=== PATIENT | female | born 1990 | race Caucasian/White ===

== ENCOUNTER 2018-07-23 04:13 | Emergency (ER) | payer SELFPAY ==
[2018-07-23] VITALS (127 sets, daily range): BP systolic 88–123; BP diastolic 43–91; PULSE 50–143; RESP 10–30; TEMP 36.6; O2SAT 93–99
[2018-07-23] MEDS: Haloperidol 5 MG/ML VIAL IM (04:27)
[2018-07-23] MEDS: diphenhydrAMINE 50 MG/ML VIAL IM (04:27)
[2018-07-23] MEDS: LORazepam 2 MG/ML VIAL IM (04:27)
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
[2018-07-23 05:46] LABS: Abs Immature Grans 0.04 k/cumm (0.0-0.09); Absolute Basophil Count 0.03 k/cumm (0.0-0.2); Absolute Lymphocyte Count 1.38 k/cumm (1.2-3.4); Absolute Monocyte Count 1.02 k/cumm (0.11-0.7); Basophils % 0.2; Eosinophils % 0.3; HCT 36.2 % (36.0-46.0); HGB 12.3 g/dL (12.0-15.5); Immature Grans % 0.3; Lymphocytes % 8.9; Mean Corpuscular Hemoglobin 28.5 pg (27.0-33.0); Mean Platelet Volume 8.7 fL (8.0-11.0); Monocytes % 6.6; Neutrophils % 83.7; Platelet Count 326 x1000/uL (130-400); RBC 4.31 m/cumm (4.00-5.20); White Blood Cell Count 15.53 k/cumm (4.4-10.8)
[2018-07-23 05:52] LABS: Absolute Eosinophil Count 0.05 k/cumm (0.0-0.7)
[2018-07-23 05:53] LABS: Bilirubin Small (Negative); Blood Negative (Negative); Clarity Clear; Glucose Negative (Negative); Ketones Negative (Negative); Leukocyte Esterase Negative (Negative); Nitrite Negative (Negative); Specific Gravity >= 1.030 (1.005-1.025); Urobilinogen 0.2 EU/dL (Up TO 0.2); pH 5.5 (5-8)
[2018-07-23 05:59] LABS: ALT 54 U/L (12-78); AST 41 U/L (15-37); Albumin 3.8 g/dL (3.4-5.0); Alkaline Phosphatase 68 U/L (46-116); Anion Gap 15.9 mmol/L (3-11); BUN 27 mg/dL (7-18); Bilirubin, Total 0.7 mg/dL (0.2-1.0); CO2 25.1 mmol/L (21.0-32.0); CREATININE 1.14 mg/dL (0.55-1.02); Calcium 8.6 mg/dL (8.5-10.1); Chloride 97 mmol/L (98-107); Estimated GFR 57.17 (mL/min/1.73m2); Glucose 94 mg/dL (70-100); Potassium 3.7 mmol/L (3.5-5.1); Sodium 138 mmol/L (136-145); Total Protein 7.6 g/dL (6.4-8.2)
[2018-07-23 06:01] LABS: *AMPHETAMINES SCREEN URINE Negative (Negative); *BARBITURATES SCREEN URINE Negative (Negative); *BENZODIAZEPINES SCREEN URINE Negative (Negative); Cannabinoids THC POSITIVE (Negative); Cocaine Screen,Urine POSITIVE (Negative); METHADONE URINE SCREEN Negative (Negative); OPIATES URINE SCREEN POSITIVE (Negative)
[2018-07-23 06:02] LABS: Bacteria Rare HPF (Negative); Crystals Negative HPF (Negative); Epithelial Cells Rare HPF (Negative); Mucus Trace (Negative); RBC Negative (0-2); WBC 0-2 HPF (0-5)
[2018-07-23 06:03] LABS: C & S Indicated? Yes; Casts 3-5 Hyaline LPF (Negative)
[2018-07-23 06:11] LABS: ETHANOL BLOOD < 3.0 mg/dL (<3)
[2018-07-23 06:12] LABS: Tricyclic Antidepressants POSITIVE (Negative)
[2018-07-23 06:20] LABS: Salicylate 4.8 mg/dL (2.8-20.0)
[2018-07-23 06:21] LABS: Acetaminophen < 2 ug/mL (10-30)
[2018-07-23] MEDS: Normal Saline 1,000 ML 1000 ML IV ×2 (13:55→14:26)
--- NOTE | 2018-07-23 15:46 | NUR.NOTE ---
Nursing Note: sleeping -HOB elevated 40 degrees after eating.
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
--- NOTE | 2018-07-23 16:53 | NUR.NOTE ---
sleeping/VS stableNursing Note:
--- NOTE | 2018-07-23 17:36 | NUR.NOTE ---
Nursing Note: sleeping/color good
--- NOTE | 2018-07-23 17:37 | NUR.NOTE ---
States has no one to come and get her and no place to go--CM notified--will try calling who is listed as a assembly person on chart and call back.Nursing Note:
--- NOTE | 2018-07-23 18:35 | NUR.NOTE ---
Nursing Note: Disha Lucas CM arrives--pt refused to talk with her--states she does not want to leave the hospital. I want to stay until I'm detoxed
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
--- NOTE | 2018-07-23 20:15 | PDOC.ERCMPRO ---
Care Management Progress Note CM paged for assistance with disposition, clothing and transportation. Vivien was unwilling to provide pertinent information to support CM in attaining support or transport for Vivien. She was requesting detox facility; CM reviewed options with Cynthia of [facility] who attempted coordination. Tash declined referral reportedly due to Vivien testing positive for cocaine-although Vivien reported requesting detox for opiate addiction. Vivien struggled to effectively communicate; bluntly and sporadically speaking in short sentences. She was unwilling or unable to identify any natural supports, destinations or folks she could call upon discharge. Due to presentation on arrival; ED staff requested support in coordination of clothing for discharge. CM gathered socks, shoes, hat, mittens, pants, sweatshirt and jacket for Vivien-which was provided. She entered the bathroom and dressed. She asked for a ride to [address] [place] [address] in [place], [place]. CM paged the [facility] tectonophysicist paging service and secured a ride for Vivien to this address. No Medicaid is shown on file; CM will request [facility] Access run Vivien's information to determine insurance coverage tomorrow morning; if she is not currently covered by Medicaid, CM will prior auth trip to be paid by [facility] and fax authorization to [facility].
--- NOTE | 2018-07-23 20:23 | CMPROGNOTE_ITS ---
Care Management Progress Note CM paged for assistance with disposition, clothing and transportation. Vivien was unwilling to provide pertinent information to support CM in attaining support or transport for Vivien. She was requesting detox facility; CM reviewed options with Cynthia of [facility] who attempted coordination. Tash declined referral reportedly due to Vivien testing positive for cocaine-although Vivien reported requesting detox for opiate addiction. Vivien struggled to effectively communicate; bluntly and sporadically speaking in short sentences. She was unwilling or unable to identify any natural supports, destinations or folks she could call upon discharge. Due to presentation on arrival; ED staff requested support in coordination of clothing for discharge. CM gathered socks, shoes, hat, mittens, pants, sweatshirt and jacket for Vivien-which was provided. She entered the bathroom and dressed. She asked for a ride to [address] [place] [address] in [place], [place]. CM paged the [facility] compressor station operator paging service and secured a ride for Vivien to this address. No Medicaid is shown on file; CM will request [facility] Access run Vivien's information to determine insurance coverage tomorrow morning; if she is not currently covered by Medicaid, CM will prior auth trip to be paid by [facility] and fax authorization to [facility].
== END 2018-07-23 20:16 | disposition home or self-care (01) ==
PROVIDERS: Emergency Medicine; Emergency Provider Student in an Organized Health Care Education/Training Program; PCP Family Medicine
DX: R45.1 Restlessness and agitation (principal); F19.20 Other psychoactive substance dependence, uncomplicated; F10.129 Alcohol abuse with intoxication, unspecified; E87.2 Acidosis; Z86.19 Personal history of other infectious and parasitic diseases; Z78.1 Physical restraint status
CPT/HCPCS: 36415; 80053; 80307; 81025; 96360; 96372; 99285; 80320; 80329; 81003; 81015; 85025; 87086; 99284; J1200; J1630; J2060

== ENCOUNTER 2018-10-21 10:06 | Emergency (ER) | payer SELFPAY ==
[2018-10-21] VITALS (137 sets, daily range): BP systolic 84–150; BP diastolic 31–124; PULSE 48–127; RESP 9–51; TEMP 36.6–37.6; O2SAT 66–100
--- NOTE | 2018-10-21 10:21 | W.ED.GENAD ---
Discharge Plan Discharge Details Chief Complaint: OD/Poison Primary Care Provider: Leonides Cunningham ED Provider: Argenis Cox Home Meds and New Rx's Prescriptions: No Action Narcan 4 MG spray,non-aerosol 4 mg NS DIRECTED Qty: 2 RF: 0 Discharge Data Discharge Date/Time-TO BE ENTERED AT DEPARTURE: 10/21/18 23:32 Medical Decision Making Vivien Mohan is a 28-year-old woman with history of asthma, bipolar, recreational drug use presenting to the emergency department with altered mental status and agitation. On exam patient is agitated and uncooperative, does not answer any questions appropriately, screams repeatedly do not touch me, repeatedly throwing blankets off her while screaming that she is cold. Tachycardic, vital signs otherwise okay. Concern for altered mental status secondary to drug use versus metabolic/lyte derangement versus acute intracranial process versus other. Plan for EKG, CT head, chest x-ray, screening labs, UA, IV placement, telemetry. Patient is unable to cooperate/participate in her care secondary to altered mental status and agitation. Plan for sedation with IM Versed. Patient received IV Versed with good sedation effect, maintaining airway without issue. Sleeping but easily arousable. Patient was temporarily placed in restraints at time of Versed administration, these were removed within 10 minutes. Patient awoke while attempting IV placement, again became very agitated and uncooperative. Patient was somewhat more lucid however and was able to tell me that she was currently in the emergency department at [facility], told me her name and address, and the correct date. Despite being oriented, patient continued to be altered and not understanding of her plan of care, unable to cooperate, again screaming that she was cold and throwing blankets off of her simultaneously. IM Versed, EKG okay without long QT, IM Haldol given as well. Sedation achieved with good effect. Patient to CT scan for CT head, IV placed and labs drawn. CT head per radiology, no acute process, cxr per radiology: no acute process. Labs show leukocytosis 29, anion gap 14, lactate 0.8. Patient remains afebrile. Unclear etiology of leukocytosis, stress reaction versus infection. Glucose 60 on fingerstick. IV dextrose given, repeat fingerstick shows glucose in 200s. We will continue to monitor and reassess. Patient sleeping, continues to arouse easily to verbal stimuli, rapidly falls back to sleep. Patient more awake at this point. Asking for food. Repeat fingerstick in the 50s. Patient drinking alyx lashon and eating fish, carrots, mashed potatoes without issue. She denies having any pain. No fever. She reports that she used heroin 2 days ago, and used crack this morning. She reports that she has been using crack frequently and has not been eating well. She denies having any pain. Repeat fingerstick 90s after meal. At this point patient with recurring hypoglycemia, likely agitation secondary to crack cocaine use, now somnolent after Versed and Haldol. Plan for admission given metabolic/lyte derangements, continued somnolence. No ICU beds available at this facility, patient not appropriate for floor bed at this time. No ICU beds available at [place], patient not appropriate for [facility] ICU. [facility] called at 7 PM. Awaiting callback. Several calls to [facility], have not been able to speak to physician re: transfer. [facility] called at [phone]. Spoke with [facility], they state they have no beds available that are appropriate for this patient. Discussed patient with Dr. Flores of [facility], patient accepted for transfer to the ICU at [facility] at 2145, no further treatment recommendations at this time, leukocytosis likely stress related given patient remains afebrile without complaint, normal lactate, no downtrending blood pressure. Pt status unchanged, somnolent, arouses easily to voice, no complaints. Patient signed out to Dr. Pena at time of shift change pending transfer. Medical Records Medical records reviewed: Yes I reviewed the patient's medical records. Lab Data Lab results reviewed: Yes I reviewed the patient's lab results. 10/21/18 13:10 Blood Blood Culture - Preliminary NO GROWTH 48 HOURS 10/21/18 12:50 Blood Blood Culture - Preliminary NO GROWTH 48 HOURS Laboratory Tests Range/Units 10/21/18 10/21/18 10/21/18 11:55 11:55 13:10 WBC (4.4-10.8) k/cumm 29.93 H* RBC (4.00-5.20) m/cumm 4.43 Hgb (12.0-15.5) g/dL 12.3 Hct (36.0-46.0) % 36.0 MCV (80-95) fL 81.3 MCH (27.0-33.0) pg 27.8 MCHC (32.0-36.0) g/dL 34.2 RDW (11.7-14.6) % 14.9 H Plt Count (130-400) x1000/uL 384 MPV (8.0-11.0) fL 8.3 Immature Gran % 0.3 Neutrophils % 91.7 Lymphocytes % 5.1 Monocytes % 2.7 Eosinophils % 0.1 Basophils % 0.1 Absolute Neutrophils (1.2-6.7) k/cumm 27.45 H Absolute Lymphocytes (1.2-3.4) k/cumm 1.53 Absolute Monocytes (0.11-0.7) k/cumm 0.81 H Absolute Eosinophils (0.0-0.7) k/cumm 0.03 Absolute Basophils (0.0-0.2) k/cumm 0.03 Sodium (136-145) mmol/L 139 Potassium (3.5-5.1) mmol/L 3.6 Chloride (98-107) mmol/L 99 Carbon Dioxide (21.0-32.0) mmol/L 25.4 Anion Gap (3-11) mmol/L 14.6 H BUN (7-18) mg/dL 25 H Creatinine (0.55-1.02) mg/dL 0.98 Estimated GFR/1.73 m2 (mL/min/1.73m2) >= 60.00 Glucose (70-100) mg/dL 47 L Lactate (0.6-1.4) mmol/l 0.8 Calcium (8.5-10.1) mg/dL 8.9 Magnesium (1.8-2.4) mg/dL Total Bilirubin (0.2-1.0) mg/dL 0.6 AST (15-37) U/L 52 H ALT (12-78) U/L 59 Alkaline Phosphatase (46-116) U/L 79 Total Protein (6.4-8.2) g/dL 7.8 Albumin (3.4-5.0) g/dL 4.1 Beta HCG, Quant (1-3) mIU/mL < 1 L Urine Color (Yellow) Urine Clarity Urine pH (5-8) Ur Specific [place] (1.005-1.025) Urine Protein (Negative) mg/dL Urine Ketones (Negative) mg/dL Urine Blood (Negative) Urine Nitrite (Negative) Urine Bilirubin (Negative) Urine Urobilinogen (Up TO 0.2) EU/dL Ur Leukocyte Esterase (Negative) Urine RBC (0-2) Urine WBC (0-5) HPF Ur Epithelial Cells (Negative) HPF Urine Crystals (Negative) HPF Urine Bacteria (Negative) HPF Urine Casts (Negative) LPF Urine Mucus (Negative) Urine Other (Negative) Ur Culture Indicated? Urine Glucose (Negative) mg/dL Urine Opiates Screen (Negative) Urine Methadone Screen (Negative) Ur Barbiturates Screen (Negative) Ur Tricyclics Screen (Negative) Ur Amphetamines Screen (Negative) U Benzodiazepines Scrn (Negative) Urine Cocaine Screen (Negative) Ur THC Screen (Negative) Range/Units 10/21/18 10/21/18 10/21/18 16:33 16:33 16:33 WBC (4.4-10.8) k/cumm RBC (4.00-5.20) m/cumm Hgb (12.0-15.5) g/dL Hct (36.0-46.0) % MCV (80-95) fL MCH (27.0-33.0) pg MCHC (32.0-36.0) g/dL RDW (11.7-14.6) % Plt Count (130-400) x1000/uL MPV (8.0-11.0) fL Immature Gran % Neutrophils % Lymphocytes % Monocytes % Eosinophils % Basophils % Absolute Neutrophils (1.2-6.7) k/cumm Absolute Lymphocytes (1.2-3.4) k/cumm Absolute Monocytes (0.11-0.7) k/cumm Absolute Eosinophils (0.0-0.7) k/cumm Absolute Basophils (0.0-0.2) k/cumm Sodium (136-145) mmol/L 139 Potassium (3.5-5.1) mmol/L 3.8 Chloride (98-107) mmol/L 104 Carbon Dioxide (21.0-32.0) mmol/L 20.9 L Anion Gap (3-11) mmol/L 14.1 H BUN (7-18) mg/dL 24 H Creatinine (0.55-1.02) mg/dL 0.96 Estimated GFR/1.73 m2 (mL/min/1.73m2) >= 60.00 Glucose (70-100) mg/dL 71 Lactate (0.6-1.4) mmol/l 0.6 Calcium (8.5-10.1) mg/dL 7.7 L Magnesium (1.8-2.4) mg/dL 2.1 Total Bilirubin (0.2-1.0) mg/dL AST (15-37) U/L ALT (12-78) U/L Alkaline Phosphatase (46-116) U/L Total Protein (6.4-8.2) g/dL Albumin (3.4-5.0) g/dL Beta HCG, Quant (1-3) mIU/mL Urine Color (Yellow) Urine Clarity Urine pH (5-8) Ur Specific [place] (1.005-1.025) Urine Protein (Negative) mg/dL Urine Ketones (Negative) mg/dL Urine Blood (Negative) Urine Nitrite (Negative) Urine Bilirubin (Negative) Urine Urobilinogen (Up TO 0.2) EU/dL Ur Leukocyte Esterase (Negative) Urine RBC (0-2) Urine WBC (0-5) HPF Ur Epithelial Cells (Negative) HPF Urine Crystals (Negative) HPF Urine Bacteria (Negative) HPF Urine Casts (Negative) LPF Urine Mucus (Negative) Urine Other (Negative) Ur Culture Indicated? Urine Glucose (Negative) mg/dL Urine Opiates Screen (Negative) Urine Methadone Screen (Negative) Ur Barbiturates Screen (Negative) Ur Tricyclics Screen (Negative) Ur Amphetamines Screen (Negative) U Benzodiazepines Scrn (Negative) Urine Cocaine Screen (Negative) Ur THC Screen (Negative) Range/Units 10/21/18 10/21/18 17:20 17:20 WBC (4.4-10.8) k/cumm RBC (4.00-5.20) m/cumm Hgb (12.0-15.5) g/dL Hct (36.0-46.0) % MCV (80-95) fL MCH (27.0-33.0) pg MCHC (32.0-36.0) g/dL RDW (11.7-14.6) % Plt Count (130-400) x1000/uL MPV (8.0-11.0) fL Immature Gran % Neutrophils % Lymphocytes % Monocytes % Eosinophils % Basophils % Absolute Neutrophils (1.2-6.7) k/cumm Absolute Lymphocytes (1.2-3.4) k/cumm Absolute Monocytes (0.11-0.7) k/cumm Absolute Eosinophils (0.0-0.7) k/cumm Absolute Basophils (0.0-0.2) k/cumm Sodium (136-145) mmol/L Potassium (3.5-5.1) mmol/L Chloride (98-107) mmol/L Carbon Dioxide (21.0-32.0) mmol/L Anion Gap (3-11) mmol/L BUN (7-18) mg/dL Creatinine (0.55-1.02) mg/dL Estimated GFR/1.73 m2 (mL/min/1.73m2) Glucose (70-100) mg/dL Lactate (0.6-1.4) mmol/l Calcium (8.5-10.1) mg/dL Magnesium (1.8-2.4) mg/dL Total Bilirubin (0.2-1.0) mg/dL AST (15-37) U/L ALT (12-78) U/L Alkaline Phosphatase (46-116) U/L Total Protein (6.4-8.2) g/dL Albumin (3.4-5.0) g/dL Beta HCG, Quant (1-3) mIU/mL Urine Color (Yellow) Yellow Urine Clarity Clear Urine pH (5-8) 5.5 Ur Specific [place] (1.005-1.025) >= 1.030 H Urine Protein (Negative) mg/dL 30 H Urine Ketones (Negative) mg/dL 40 H Urine Blood (Negative) Negative Urine Nitrite (Negative) Negative Urine Bilirubin (Negative) Negative Urine Urobilinogen (Up TO 0.2) EU/dL 0.2 Ur Leukocyte Esterase (Negative) Negative Urine RBC (0-2) Negative Urine WBC (0-5) HPF 0-2 Ur Epithelial Cells (Negative) HPF Rare Urine Crystals (Negative) HPF Negative Urine Bacteria (Negative) HPF Rare Urine Casts (Negative) LPF Negative Urine Mucus (Negative) Trace Urine Other (Negative) Negative Ur Culture Indicated? No Urine Glucose (Negative) mg/dL Negative Urine Opiates Screen (Negative) Positive Urine Methadone Screen (Negative) Negative Ur Barbiturates Screen (Negative) Negative Ur Tricyclics Screen (Negative) Negative Ur Amphetamines Screen (Negative) Negative U Benzodiazepines Scrn (Negative) Positive Urine Cocaine Screen (Negative) Positive Ur THC Screen (Negative) Positive ECG Data Attestation: I personally reviewed and interpreted this ECG (s) as follows: Interpretation: Normal sinus rhythm at 75, normal axis, no acute ischemic changes, nondiagnostic EKG HPI General Mode of arrival: EMS. Date/Time Provider Initiated Documentation: 10/21/18 10:55. Limitations to Documentation: altered mental status. Information obtained by: EMS, RN notes reviewed and old records reviewed. HPI Narrative: Vivien Mohan is a 28-year-old woman with history of asthma, bipolar, drug abuse presenting to the emergency department with altered mental status. Per EMS, patient was found rolling around in snow outside in freezing temperatures, agitated, uncooperative. Per EMS, patient was found to have what looked like crack cocaine in her possession. Patient is currently agitated, screaming, uncooperative, does not answer any questions appropriately. Unable to obtain review of systems secondary to altered mental status. Related Data Home Medications Medication Instructions Recorded Confirmed Narcan 4 mg NS DIRECTED #2 spray 03/07/18 10/21/18 Previous Rx's Medication Instructions Recorded Narcan 4 mg NS DIRECTED #2 spray 03/07/18 Allergies Allergy/AdvReac Type Severity Reaction Status Date / Time amoxicillin trihydrate Allergy Severe Anaphylaxsi Unverified 10/21/18 16:27 [From Amoxil] s aloe vera Allergy Intermediate Hives Unverified 10/21/18 16:27 venom-honey bee Allergy Intermediate Unverified 10/21/18 16:27 [bee venom (honey bee)] erythromycin base Allergy Unknown Unverified 10/21/18 16:27 [Erythromycin Base] Penicillins Allergy Unknown Unverified 10/21/18 16:27 COCONUT Allergy Unknown Uncoded 10/21/18 16:27 General MARISELA: 1 Review of Systems Review of Systems Unobtainable due to mental status [facility] Social History Smoking/Tobacco Use Status: Current every day Exam Narrative Exam Narrative: Constitutional: agitated, shouting, not responding to questions asked, alert HENT: head atraumatic, normocephalic normal inspection, mucous membranes moist Eyes: conjunctiva normal, sclera normal, pupils 3mm b/l, EOM grossly Neck: no stridor, normal ROM, trachea midline Chest: normal inspection Resp: normal work of breathing, LCTAB Cardio: normal rate, normal rhythm, no murmur appreciated GI: abdomen soft, non-tender, non-distended Back: normal inspection, no rash Skin: warm, dry, normal color, no rash Neuro: alert, altered, grossly non-focal, moving all extremities equally, normal tone Ext: no edema Psych: agitated behavior, no hallucinations Critical Care Time Attestation: I have spent 90 minutes of critical care time with this patient including frequent re-evaluations, discussion with consultants.
[2018-10-21] MEDS: Midazolam 5 MG/5 ML VIAL ×3 (10:51→16:53)
[2018-10-21] MEDS: Haloperidol 5 MG/ML VIAL (10:55)
--- NOTE | 2018-10-21 11:13 | DI.COMBO_ITS ---
SYMPTOM/DIAGNOSIS: ALTERED MENTAL STATUS AP SEMI ERECT CHEST: Comparison is made with 12/30/11. The heart size is normal. The lungs are clear. The lungs are suboptimally inflated but appear clear. No infiltrate, effusion or pneumothorax is seen. IMPRESSION: Negative chest xray. NONCONTRAST HEAD CT: Comparison is made with 03/01/18. No intracranial hemorrhage or skull fracture is seen. The ventricles are normal in size. The sinuses and mastoid air cells appear clear. IMPRESSION: Negative head CT.
--- NOTE | 2018-10-21 11:53 | DI.VRAD_ITS ---
EXAM: CT Head Without Contrast EXAM DATE/TIME: 10/21/2018 10:20 AM CLINICAL HISTORY: 28 years old, female; Signs and symptoms; Altered mental status/memory loss; Other: AMS; Patient HX: Patient unconscious unable to get medical HX. Best images obtained due to patient condition. TECHNIQUE: Axial computed tomography images of the head/brain without contrast. All CT scans at this facility use at least one of these dose optimization techniques: automated exposure control; mA and/or kV adjustment per patient size (includes targeted exams where dose is matched to clinical indication); or iterative reconstruction. Coronal and sagittal reformatted images were created and reviewed. COMPARISON: CT HEAD AND CSPINE W/O CONTRAST 03/01/2018 11:03 PM FINDINGS: Brain: Normal. No hemorrhage. No significant white matter disease. No edema. Ventricles: Normal. No ventriculomegaly. Bones/joints: Unremarkable. No acute fracture. Sinuses: Opacities in the maxillary sinuses may represent mild sinusitis Mastoid air cells: Visualized mastoid air cells are unremarkable. No mastoid effusion. Soft tissues: Unremarkable. Dental: Periapical lucencies in the maxilla may represent periapical abscess. IMPRESSION: No acute intracranial hemorrhage Dictated and Authenticated by: Guevara Smith MD. Ordering:KEITH More MD
[2018-10-21] MEDS: Normal Saline Flush 10 ML SYR IVP (11:55)
--- NOTE | 2018-10-21 12:03 | DI.VRAD_ITS ---
Addendum created by Guevara Smith MD on 10/21/2018 12:05:42 PM EST THIS REPORT CONTAINS FINDINGS THAT MAY BE CRITICAL TO PATIENT CARE. The findings were verbally communicated via telephone conference with DANIEL ESTRELLA at 12:05 PM EST on 10/21/2018. The findings were acknowledged and understood. She states that clinically the patient has no reason for pneumothorax. She will get a followup study Initial report created on 10/21/2018 12:03:23 PM EST EXAM: XR Chest, 1 View EXAM DATE/TIME: 10/21/2018 11:49 AM CLINICAL HISTORY: 28 years old, female; Signs and symptoms; Other: AMS TECHNIQUE: XR of the chest, 1 view. COMPARISON: CR RIGHT RIBS PA CXR-3 VIEWS 04/28/2013 1:21 AM FINDINGS: Lungs: Apices of both lung amaya are very lucent. However no definite pleural surface identified. Small pneumothoraces cannot be ruled out. Pleural space: See Lungs Finding. Heart/Mediastinum: Unremarkable. No cardiomegaly. Bones/joints: Unremarkable. IMPRESSION: Apices of both lung amaya are very lucent. However no definite pleural surface identified. Small pneumothoraces cannot be ruled out. Dictated and Authenticated by: Guevara Smith MD. Ordering:KEITH More MD
[2018-10-21 12:04] LABS: Absolute Basophil Count 0.03 k/cumm (0.0-0.2); Absolute Lymphocyte Count 1.53 k/cumm (1.2-3.4); Basophils % 0.1; Eosinophils % 0.1; HGB 12.3 g/dL (12.0-15.5); Immature Grans % 0.3; Lymphocytes % 5.1; Mean Corp. HGB Concentration 34.2 g/dL (32.0-36.0); Mean Corpuscular Hemoglobin 27.8 pg (27.0-33.0); Mean Corpuscular Volume 81.3 fL (80-95); Mean Platelet Volume 8.3 fL (8.0-11.0); Monocytes % 2.7; Neutrophils % 91.7; Platelet Count 384 x1000/uL (130-400); RBC 4.43 m/cumm (4.00-5.20); RBC Distribution Width 14.9 % (11.7-14.6)
[2018-10-21 12:18] LABS: ALT 59 U/L (12-78); AST 52 U/L (15-37); Albumin 4.1 g/dL (3.4-5.0); Alkaline Phosphatase 79 U/L (46-116); Anion Gap 14.6 mmol/L (3-11); BUN 25 mg/dL (7-18); Bilirubin, Total 0.6 mg/dL (0.2-1.0); CO2 25.4 mmol/L (21.0-32.0); CREATININE 0.98 mg/dL (0.55-1.02); Calcium 8.9 mg/dL (8.5-10.1); Chloride 99 mmol/L (98-107); Glucose 47 mg/dL (70-100); Potassium 3.6 mmol/L (3.5-5.1); Sodium 139 mmol/L (136-145); Total Protein 7.8 g/dL (6.4-8.2)
[2018-10-21 12:24] LABS: Absolute Eosinophil Count 0.03 k/cumm (0.0-0.7); Absolute Monocyte Count 0.81 k/cumm (0.11-0.7); Absolute Neutrophil Count 27.45 k/cumm (1.2-6.7); White Blood Cell Count 29.93 k/cumm (4.4-10.8)
[2018-10-21 12:43] LABS: HCG Quant, Pregnancy < 1 mIU/mL (1-3)
[2018-10-21] MEDS: Normal Saline 1,000 ML 1000 ML IV ×2 (13:10→14:00)
[2018-10-21 13:16] LABS: Lactate-non-spesis 0.8 mmol/l (0.6-1.4)
[2018-10-21] MEDS: Lactated Ringers 1,000 ML 1000 ML IV (15:47)
[2018-10-21 16:45] LABS: Lactate-non-spesis 0.6 mmol/l (0.6-1.4)
[2018-10-21] MEDS: Midazolam 2 MG/2 ML VIAL (16:52)
[2018-10-21 16:55] LABS: Anion Gap 14.1 mmol/L (3-11); BUN 24 mg/dL (7-18); CO2 20.9 mmol/L (21.0-32.0); CREATININE 0.96 mg/dL (0.55-1.02); Calcium 7.7 mg/dL (8.5-10.1); Chloride 104 mmol/L (98-107); Glucose 71 mg/dL (70-100); Potassium 3.8 mmol/L (3.5-5.1); Sodium 139 mmol/L (136-145)
[2018-10-21 17:34] LABS: Bilirubin Negative (Negative); Blood Negative (Negative); Clarity Clear; Glucose Negative (Negative); Ketones 40 mg/dL (Negative); Leukocyte Esterase Negative (Negative); Nitrite Negative (Negative); Specific Gravity >= 1.030 (1.005-1.025); Urobilinogen 0.2 EU/dL (Up TO 0.2); pH 5.5 (5-8)
--- NOTE | 2018-10-21 17:44 | ED.GENADUL_ITS ---
Discharge Plan Discharge Details Chief Complaint: OD/Poison Primary Care Provider: Leonides Cunningham ED Provider: Argenis Cox Home Meds and New Rx's Prescriptions: No Action Narcan 4 MG spray,non-aerosol 4 mg NS DIRECTED Qty: 2 RF: 0 Discharge Data Discharge Date/Time-TO BE ENTERED AT DEPARTURE: 10/21/18 23:32 Medical Decision Making Vivien Mohan is a 28-year-old woman with history of asthma, bipolar, recreational drug use presenting to the emergency department with altered mental status and agitation. On exam patient is agitated and uncooperative, does not answer any questions appropriately, screams repeatedly do not touch me, repeatedly throwing blankets off her while screaming that she is cold. Tachycardic, vital signs otherwise okay. Concern for altered mental status secondary to drug use versus metabolic/lyte derangement versus acute intracranial process versus other. Plan for EKG, CT head, chest x-ray, screening labs, UA, IV placement, telemetry. Patient is unable to coop erate/participate in her care secondary to altered mental status and agitation. Plan for sedation with IM Versed. Patient received IV Versed with good sedation effect, maintaining airway without issue. Sleeping but easily arousable. Patient was temporarily placed in restraints at time of Versed administration, these were removed within 10 minutes. Patient awoke while attempting IV placement, again became very agitated and uncooperative. Patient was somewhat more lucid however and was able to tell me that she was currently in the emergency department at [facility], told me her name and address, and the correct date. Despite being oriented, patient continued to be altered and not understanding of her plan of care, unable to cooperate, again screaming that she was cold and throwing blankets off of her simultaneously. IM Versed, EKG okay without long QT, IM Haldol given as well. Sedation achieved with good effect. Patient to CT scan for CT head, IV placed and labs drawn. CT head per radiology, no acute process, cxr per radiology: no acute process. Labs show leukocytosis 29, anion gap 14, lactate 0.8. Patient remains afebrile. Unclear etiology of leukocytosis, stress reaction versus infection. Glucose 60 on fingerstick. IV dextrose given, repeat fingerstick shows glucose in 200s. We will continue to monitor and reassess. Patient sleeping, continues to arouse easily to verbal stimuli, rapidly falls back to sleep. Patient more awake at this point. Asking for food. Repeat fingerstick in the 50s. Patient drinking alyx lashon and eating fish, carrots, mashed potatoes without issue. She denies having any pain. No fever. She reports that she used heroin 2 days ago, and used crack this morning. She reports that she has been using crack frequently and has not been eating well. She denies having any pain. Repeat fingerstick 90s after meal. At this point patient with recurring hypoglycemia, likely agitation secondary to crack cocaine use, now somnolent after Versed and Haldol. Plan for admission given metabolic/lyte derangements, continued somnolence. No ICU beds available at this facility, patient not appropriate for floor bed at this time. No ICU beds available at [place], patient not appropriate for [facility] ICU. [facility] called at 7 PM. Awaiting callback. Several calls to [facility], have not been able to speak to physician re: transfer. [facility] called at [phone]. Spoke with [facility], they state they have no beds available that are appropriate for this patient. Discussed patient with Dr. Flores of [facility], patient accepted for transfer to the ICU at [facility] at 2145, no further treatment recommendations at this time, leukocytosis likely stress related given patient remains afebrile without complaint, normal lactate, no downtrending blood pressure. Pt status unchanged, somnolent, arouses easily to voice, no complaints. Patient signed out to Dr. Pena at time of shift change pending transfer. Medical Records Medical records reviewed: Yes I reviewed the patient's medical records. Lab Data Lab results reviewed: Yes I reviewed the patient's lab results. 10/21/18 13:10 Blood Blood Culture - Preliminary NO GROWTH 48 HOURS 10/21/18 12:50 Blood Blood Culture - Preliminary NO GROWTH 48 HOURS Laboratory Tests Range/Units 10/21/18 10/21/18 10/21/18 11:55 11:55 13:10 WBC (4.4-10.8) k/cumm 29.93 H* RBC (4.00-5.20) m/cumm 4.43 Hgb (12.0-15.5) g/dL 12.3 Hct (36.0-46.0) % 36.0 MCV (80-95) fL 81.3 MCH (27.0-33.0) pg 27.8 MCHC (32.0-36.0) g/dL 34.2 RDW (11.7-14.6) % 14.9 H Plt Count (130-400) x1000/uL 384 MPV (8.0-11.0) fL 8.3 Immature Gran % 0.3 Neutrophils % 91.7 Lymphocytes % 5.1 Monocytes % 2.7 Eosinophils % 0.1 Basophils % 0.1 Absolute Neutrophils (1.2-6.7) k/cumm 27.45 H Absolute Lymphocytes (1.2-3.4) k/cumm 1.53 Absolute Monocytes (0.11-0.7) k/cumm 0.81 H Absolute Eosinophils (0.0-0.7) k/cumm 0.03 Absolute Basophils (0.0-0.2) k/cumm 0.03 Sodium (136-145) mmol/L 139 Potassium (3.5-5.1) mmol/L 3.6 Chloride (98-107) mmol/L 99 Carbon Dioxide (21.0-32.0) mmol/L 25.4 Anion Gap (3-11) mmol/L 14.6 H BUN (7-18) mg/dL 25 H Creatinine (0.55-1.02) mg/dL 0.98 Estimated GFR/1.73 m2 (mL/min/1.73m2) >= 60.00 Glucose (70-100) mg/dL 47 L Lactate (0.6-1.4) mmol/l 0.8 Calcium (8.5-10.1) mg/dL 8.9 Magnesium (1.8-2.4) mg/dL Total Bilirubin (0.2-1.0) mg/dL 0.6 AST (15-37) U/L 52 H ALT (12-78) U/L 59 Alkaline Phosphatase (46-116) U/L 79 Total Protein (6.4-8.2) g/dL 7.8 Albumin (3.4-5.0) g/dL 4.1 Beta HCG, Quant (1-3) mIU/mL < 1 L Urine Color (Yellow) Urine Clarity Urine pH (5-8) Ur Specific [place] (1.005-1.025) Urine Protein (Negative) mg/dL Urine Ketones (Negative) mg/dL Urine Blood (Negative) Urine Nitrite (Negative) Urine Bilirubin (Negative) Urine Urobilinogen (Up TO 0.2) EU/dL Ur Leukocyte Esterase (Negative) Urine RBC (0-2) Urine WBC (0-5) HPF Ur Epithelial Cells (Negative) HPF Urine Crystals (Negative) HPF Urine Bacteria (Negative) HPF Urine Casts (Negative) LPF Urine Mucus (Negative) Urine Other (Negative) Ur Culture Indicated? Urine Glucose (Negative) mg/dL Urine Opiates Screen (Negative) Urine Methadone Screen (Negative) Ur Barbiturates Screen (Negative) Ur Tricyclics Screen (Negative) Ur Amphetamines Screen (Negative) U Benzodiazepines Scrn (Negative) Urine Cocaine Screen (Negative) Ur THC Screen (Negative) Range/Units 10/21/18 10/21/18 10/21/18 16:33 16:33 16:33 WBC (4.4-10.8) k/cumm RBC (4.00-5.20) m/cumm Hgb (12.0-15.5) g/dL Hct (36.0-46.0) % MCV (80-95) fL MCH (27.0-33.0) pg MCHC (32.0-36.0) g/dL RDW (11.7-14.6) % Plt Count (130-400) x1000/uL MPV (8.0-11.0) fL Immature Gran % Neutrophils % Lymphocytes % Monocytes % Eosinophils % Basophils % Absolute Neutrophils (1.2-6.7) k/cumm Absolute Lymphocytes (1.2-3.4) k/cumm Absolute Monocytes (0.11-0.7) k/cumm Absolute Eosinophils (0.0-0.7) k/cumm Absolute Basophils (0.0-0.2) k/cumm Sodium (136-145) mmol/L 139 Potassium (3.5-5.1) mmol/L 3.8 Chloride (98-107) mmol/L 104 Carbon Dioxide (21.0-32.0) mmol/L 20.9 L Anion Gap (3-11) mmol/L 14.1 H BUN (7-18) mg/dL 24 H Creatinine (0.55-1.02) mg/dL 0.96 Estimated GFR/1.73 m2 (mL/min/1.73m2) >= 60.00 Glucose (70-100) mg/dL 71 Lactate (0.6-1.4) mmol/l 0.6 Calcium (8.5-10.1) mg/dL 7.7 L Magnesium (1.8-2.4) mg/dL 2.1 Total Bilirubin (0.2-1.0) mg/dL AST (15-37) U/L ALT (12-78) U/L Alkaline Phosphatase (46-116) U/L Total Protein (6.4-8.2) g/dL Albumin (3.4-5.0) g/dL Beta HCG, Quant (1-3) mIU/mL Urine Color (Yellow) Urine Clarity Urine pH (5-8) Ur Specific [place] (1.005-1.025) Urine Protein (Negative) mg/dL Urine Ketones (Negative) mg/dL Urine Blood (Negative) Urine Nitrite (Negative) Urine Bilirubin (Negative) Urine Urobilinogen (Up TO 0.2) EU/dL Ur Leukocyte Esterase (Negative) Urine RBC (0-2) Urine WBC (0-5) HPF Ur Epithelial Cells (Negative) HPF Urine Crystals (Negative) HPF Urine Bacteria (Negative) HPF Urine Casts (Negative) LPF Urine Mucus (Negative) Urine Other (Negative) Ur Culture Indicated? Urine Glucose (Negative) mg/dL Urine Opiates Screen (Negative) Urine Methadone Screen (Negative) Ur Barbiturates Screen (Negative) Ur Tricyclics Screen (Negative) Ur Amphetamines Screen (Negative) U Benzodiazepines Scrn (Negative) Urine Cocaine Screen (Negative) Ur THC Screen (Negative) Range/Units 10/21/18 10/21/18 17:20 17:20 WBC (4.4-10.8) k/cumm RBC (4.00-5.20) m/cumm Hgb (12.0-15.5) g/dL Hct (36.0-46.0) % MCV (80-95) fL MCH (27.0-33.0) pg MCHC (32.0-36.0) g/dL RDW (11.7-14.6) % Plt Count (130-400) x1000/uL MPV (8.0-11.0) fL Immature Gran % Neutrophils % Lymphocytes % Monocytes % Eosinophils % Basophils % Absolute Neutrophils (1.2-6.7) k/cumm Absolute Lymphocytes (1.2-3.4) k/cumm Absolute Monocytes (0.11-0.7) k/cumm Absolute Eosinophils (0.0-0.7) k/cumm Absolute Basophils (0.0-0.2) k/cumm Sodium (136-145) mmol/L Potassium (3.5-5.1) mmol/L Chloride (98-107) mmol/L Carbon Dioxide (21.0-32.0) mmol/L Anion Gap (3-11) mmol/L BUN (7-18) mg/dL Creatinine (0.55-1.02) mg/dL Estimated GFR/1.73 m2 (mL/min/1.73m2) Glucose (70-100) mg/dL Lactate (0.6-1.4) mmol/l Calcium (8.5-10.1) mg/dL Magnesium (1.8-2.4) mg/dL Total Bilirubin (0.2-1.0) mg/dL AST (15-37) U/L ALT (12-78) U/L Alkaline Phosphatase (46-116) U/L Total Protein (6.4-8.2) g/dL Albumin (3.4-5.0) g/dL Beta HCG, Quant (1-3) mIU/mL Urine Color (Yellow) Yellow Urine Clarity Clear Urine pH (5-8) 5.5 Ur Specific [place] (1.005-1.025) >= 1.030 H Urine Protein (Negative) mg/dL 30 H Urine Ketones (Negative) mg/dL 40 H Urine Blood (Negative) Negative Urine Nitrite (Negative) Negative Urine Bilirubin (Negative) Negative Urine Urobilinogen (Up TO 0.2) EU/dL 0.2 Ur Leukocyte Esterase (Negative) Negative Urine RBC (0-2) Negative Urine WBC (0-5) HPF 0-2 Ur Epithelial Cells (Negative) HPF Rare Urine Crystals (Negative) HPF Negative Urine Bacteria (Negative) HPF Rare Urine Casts (Negative) LPF Negative Urine Mucus (Negative) Trace Urine Other (Negative) Negative Ur Culture Indicated? No Urine Glucose (Negative) mg/dL Negative Urine Opiates Screen (Negative) Positive Urine Methadone Screen (Negative) Negative Ur Barbiturates Screen (Negative) Negative Ur Tricyclics Screen (Negative) Negative Ur Amphetamines Screen (Negative) Negative U Benzodiazepines Scrn (Negative) Positive Urine Cocaine Screen (Negative) Positive Ur THC Screen (Negative) Positive ECG Data Attestation: I personally reviewed and interpreted this ECG (s) as follows: Interpretation: Normal sinus rhythm at 75, normal axis, no acute ischemic changes, nondiagnostic EKG HPI General Mode of arrival: EMS . Date/Time Provider Initiated Documentation: 10/21/18 10:55 . Limitations to Documentation: altered mental status . Information obtained by: EMS, RN notes reviewed and old records reviewed . HPI Narrative: Vivien Mohan is a 28-year-old woman with history of asthma, bipolar, drug abuse presenting to the emergency department with altered mental status. Per EMS, patient was found rolling around in snow outside in freezing temperatures, agitated, uncooperative. Per EMS, patient was found to have what looked like crack cocaine in her possession. Patient is currently agitated, screaming, uncooperative, does not answer any questions appropriately. Unable to obtain review of systems secondary to altered mental status. Related Data Home Medications Medication Instructions Recorded Confirmed Narcan 4 mg NS DIRECTED #2 spray 03/07/18 10/21/18 Previous Rx's Medication Instructions Recorded Narcan 4 mg NS DIRECTED #2 spray 03/07/18 Allergies Allergy/AdvReac Type Severity Reaction Status Date / Time amoxicillin trihydrate Allergy Severe Anaphylaxsi Unverified 10/21/18 16:27 [From Amoxil] s aloe vera Allergy Intermediate Hives Unverified 10/21/18 16:27 venom-honey bee Allergy Intermediate Unverified 10/21/18 16:27 [bee venom (honey bee)] erythromycin base Allergy Unknown Unverified 10/21/18 16:27 [Erythromycin Base] Penicillins Allergy Unknown Unverified 10/21/18 16:27 COCONUT Allergy Unknown Uncoded 10/21/18 16:27 General MARISELA: 1 Review of Systems Review of Systems Unobtainable due to mental status [facility] Social History Smoking/Tobacco Use Status: Current every day Exam Narrative Exam Narrative: Constitutional: agitated, shouting, not responding to questions asked, alert HENT: head atraumatic, normocephalic normal inspection, mucous membranes moist Eyes: conjunctiva normal, sclera normal, pupils 3mm b/l, EOM grossly Neck: no stridor, normal ROM, trachea midline Chest: normal inspection Resp: normal work of breathing, LCTAB Cardio: normal rate, normal rhythm, no murmur appreciated GI: abdomen soft, non-tender, non-distended Back: normal inspection, no rash Skin: warm, dry, normal color, no rash Neuro: alert, altered, grossly non-focal, moving all extremities equally, normal tone Ext: no edema Psych: agitated behavior, no hallucinations Critical Care Time Attestation: I have spent 90 minutes of critical care time with this patient including frequent re-evaluations, discussion with consultants.
[2018-10-21 17:50] LABS: Bacteria Rare HPF (Negative); C & S Indicated? No; Casts Negative LPF (Negative); Crystals Negative HPF (Negative); Epithelial Cells Rare HPF (Negative); Mucus Trace (Negative); Other Cells Negative (Negative); RBC Negative (0-2); WBC 0-2 HPF (0-5)
[2018-10-21 17:58] LABS: Magnesium 2.1 mg/dL (1.8-2.4)
[2018-10-21] MEDS: Calcium Gluconate 4.65 MEQ/10 ML VIAL 4.65 MG IVP (18:26)
[2018-10-21] MEDS: Dextrose 50%-Water 25 GM/50 ML SYR (20:42)
[2018-10-21 23:44] LABS: *AMPHETAMINES SCREEN URINE Negative (Negative); *BARBITURATES SCREEN URINE Negative (Negative); *BENZODIAZEPINES SCREEN URINE POSITIVE (Negative); Cannabinoids THC POSITIVE (Negative); Cocaine Screen,Urine POSITIVE (Negative); METHADONE URINE SCREEN Negative (Negative); OPIATES URINE SCREEN POSITIVE (Negative)
[2018-10-21 23:55] LABS: Tricyclic Antidepressants Negative (Negative)
== END 2018-10-21 23:32 ==
PROVIDERS: Emergency Medicine; Emergency Provider Student in an Organized Health Care Education/Training Program; PCP Family Medicine
DX: R41.82 Altered mental status, unspecified (principal); T40.5X1A Poisoning by cocaine, accidental (unintentional), initial encounter; R45.1 Restlessness and agitation; F11.10 Opioid abuse, uncomplicated; F14.10 Cocaine abuse, uncomplicated; D72.829 Elevated white blood cell count, unspecified; Z78.1 Physical restraint status
CPT/HCPCS: 36415; 36416; 80048; 80053; 80307; 81025; 82962; 87040; 93005; 96361; 96372; 99285; 99291; 99292; 70450; 71045; 81003; 81015; 83605; 83735; 84702; 85025; 93010; J0610; J1630; J2250

== ENCOUNTER 2019-04-16 23:43 | Emergency (ER) | payer MEDICAID, SELFPAY ==
--- NOTE | 2019-04-16 00:10 | DI.CT_ITS ---
SYMPTOM/DIAGNOSIS: FALL, DRUNK, CONTUSION, LAC TO RIGHT SCALP CT BRAIN: Noncontrast examination was performed. Comparison 10/21/18 There is significant patient motion artifact which degrades image quality and predominantly affects the cerebellum and brain stem There is normal muñoz/white matter differentiation. No intracranial hemorrhage or acute midline shift or mass effect is identified. The ventricles are intact. The basilar cisterns are patent. The visualized paranasal sinuses are clear as are the mastoid air cells. The calvarium is intact. IMPRESSION: 1. Patient motion artifact 2. No acute intracranial process.
--- NOTE | 2019-04-16 23:44 | W.ED.GENAD ---
Discharge Plan Disposition Patient Disposition: HOME Condition: Stable Discharge Details Chief Complaint: HeadInjury Clinical Impression: Alcohol intoxication, Laceration Primary Care Provider: None,None ED Provider: Devaughn Matta Home Meds and New Rx's Prescriptions: No Action Narcan 4 MG spray,non-aerosol 4 mg NS DIRECTED Qty: 2 RF: 0 Discharge Instructions Instructions: Laceration (ED), Alcohol Intoxication (ED) Additional Instructions: You have a small laceration that did not require sutures. Please leave the dressing on for 24 hours, then you may remove and begin cleaning the wound at least twice a day with soap and water. Continue to apply antibiotic ointment. Do not directly soak the area. Watch for any signs of infection and return if any increasing redness, swelling, pain, drainage. If you notice any worsening of your symptoms, or any new symptoms such as vomiting, diarrhea, fever, chills, shortness of breath, chest pain, numbness, weakness, or fainting , please return immediately to the emergency department for reevaluation. Please follow up with your primary care provider as soon as possible for reassessment and reevaluation. As always, it was a pleasure participating in your medical care today. Medical Decision Making This is a 28-year-old female with a past medical history of illicit drug use, hepatitis C, who presents today in police custody for medical evaluation. Patient was in police custody and handcuffed when she tried to escape, she hit the ground and developed a small laceration to her right brow. Minimal active bleeding. No evidence of deep tissue involvement. The remainder of her exam is otherwise benign aside for some small scrapes. No focal neurologic deficits. Small abrasion to the scalp, but no other signs of significant trauma. Will clean of the patient, and assess for need for suture repair, however I doubt this is notably appears superficial. 1:[address] scan of her head shows no evidence of acute process, fracture or bleed per virtual radiology. Superficial abrasion/laceration to her right brow demonstrates no need for suturing, Dermabond was placed and patient tolerated this well. After the area was cleaned vigorously with hydrogen peroxide and saline. Patient's tetanus was updated. She appears medically cleared. Patient will be discharged back to the custody of police. I have extensively reviewed the treatment plan and discharge instructions with the patient. I have addressed all patient concerns at this time. The patient was made aware of what symptoms to monitor for that would warrant a return to the emergency department. Discussed the plan with the patient, they demonstrate verbal understanding and agreement with our assessment and plan at this time. FINDINGS: Brain: Typical for age. No hemorrhage. No evidence of acute infarct. No mass. Motion degradation through the inferior aspect of the cerebellum. Ventricles: No ventriculomegaly. Bones/joints: Unremarkable. Motion degradation obscures visualized facial bones. Sinuses: No obvious sinus fluid. Mastoid air cells: Unremarkable. Soft tissues: Unremarkable. IMPRESSION: No obvious acute intracranial abnormality. Thank you for allowing us to participate in the care of your patient. Dictated and Authenticated by: Ammon Jasmine MD 04/17/2019 12:37 AM Eastern Time ([place] & [place]) HPI General Date/Time Provider Initiated Documentation: 04/16/19 23:44. HPI Narrative: This is a 28-year-old female with a past medical history of hepatitis C, illicit drug use, who currently presents today for evaluation of a fall, laceration to the scalp, and in police custody. She was intoxicated this evening and taken to the police station where while in handcuffs she tried to run out and escape, she fell and hit her right scalp. Causing a small superficial laceration. Is brought to the ER for medical clearance, after this is performed she will be brought back to halfway if she is medically cleared. Aside for being notably intoxicated, the patient has no other complaints at this time. Tetanus status is not up-to-date. She denies any other pertinent medical history at this time. Related Data Home Medications Medication Instructions Recorded Confirmed Narcan 4 mg NS DIRECTED #2 spray 03/07/18 10/21/18 Previous Rx's Medication Instructions Recorded Narcan 4 mg NS DIRECTED #2 spray 03/07/18 Allergies Allergy/AdvReac Type Severity Reaction Status Date / Time amoxicillin trihydrate Allergy Severe Anaphylaxsi Unverified 04/16/19 23:50 [From Amoxil] s aloe vera Allergy Intermediate Hives Unverified 04/16/19 23:50 venom-honey bee Allergy Intermediate Unverified 04/16/19 23:50 [bee venom (honey bee)] erythromycin base Allergy Unknown Unverified 04/16/19 23:50 [Erythromycin Base] Penicillins Allergy Unknown Unverified 04/16/19 23:50 COCONUT Allergy Unknown Uncoded 04/16/19 23:50 General MARISELA: 1 Review of Systems Review of Systems All systems reviewed & are unremarkable except as noted in HPI and below PFSH Social History Smoking/Tobacco Use Status: Current every day Alcohol Intake: current Alcohol Intake frequency: 3 or more drinks per day Alcohol type: beer Drug use: Daily Do you feel safe in your relationship?: Yes Exam Narrative Exam Narrative: 1.Const: Well-nourished, Well-developed, appearing stated age 2.Eyes: PERRL, no conjunctival injection, and symmetrical lids. 3.ENT: Atraumatic external nose and ears. Moist MM. Neck: Symmetric, trachea midline, No thyromegaly. Small 1 cm laceration over the right brow. Minimal active bleeding. There is no evidence of raccoon eyes, ramirez sign, CSF rhinorrhea, mastoid tenderness, cranial crepitus, hemotympanum, exophthalmos, or hyphema. Patient demonstrates intact dentition with no signs of tooth avulsion or fracture, no signs of jaw deformity, no evidence of a LeFort's fracture, with an intact palate, nose and orbital region. There is no evidence of a nasal septal hematoma. No proptosis. Jaw closes symmetrically. Airway is clear. 4.CVS: +S1/S2, No murmurs or gallops. Peripheral pulses 2+ and equal in all extremities. Brisk capillary refill in all extremities. 5.RESP: Unlabored respiratory effort. Clear to auscultation bilaterally. No wheezes rales or rhonchi 6.GI: Soft, Nontender/Nondistended, No hepatosplenomegaly. No guarding or rebound. 7.MSK: Normocephalic/Atraumatic, Extremities w/o deformity or ttp No cyanosis or clubbing, Normal movement of all extremities 8.Skin: Warm, Dry. No rashes or lesions. Small 1 cm linear laceration to the right brow. Minimal active bleeding. No evidence of deep tendon or tissue involvement. 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 Sensation grossly intact, no focal neurologic deficits. 10.Psych: (AAO) x3. Notably intoxicated,
[2019-04-16 23:45] VITALS: BP 120/80; PULSE 60; RESP 20; TEMP 36.6; O2SAT 97
--- NOTE | 2019-04-17 00:37 | DI.VRAD_ITS ---
EXAM: CT Head Without Contrast EXAM DATE/TIME: 04/16/2019 11:50 PM CLINICAL HISTORY: 28 years old, female; Injury or trauma; Fall; Initial encounter; Blunt trauma (contusions or hematomas); Consciousness not specified; Injury date: 04/16/19; Injury details: PT fell on pavement and hit head. +etoh, lac to right scalp TECHNIQUE: Imaging protocol: Computed tomography images of the head without contrast. Coronal and sagittal reformatted images were created and reviewed. Radiation optimization: All CT scans at this facility use at least one of these dose optimization techniques: automated exposure control; mA and/or kV adjustment per patient size (includes targeted exams where dose is matched to clinical indication); or iterative reconstruction. COMPARISON: CT HEAD WO 10/21/2018 11:29 AM FINDINGS: Brain: Typical for age. No hemorrhage. No evidence of acute infarct. No mass. Motion degradation through the inferior aspect of the cerebellum. Ventricles: No ventriculomegaly. Bones/joints: Unremarkable. Motion degradation obscures visualized facial bones. Sinuses: No obvious sinus fluid. Mastoid air cells: Unremarkable. Soft tissues: Unremarkable. IMPRESSION: No obvious acute intracranial abnormality. Dictated and Authenticated by: Ammon Jasmine MD. Ordering:LEE Cantor MD
[2019-04-17 00:57] VITALS: BP 120/80; PULSE 60; RESP 20; TEMP 36.6; O2SAT 97
== END 2019-04-17 00:59 | disposition home or self-care (01) ==
LOC: ER 04-17 01:01
PROVIDERS: Emergency Provider Student in an Organized Health Care Education/Training Program
DX: S01.111A Laceration without foreign body of right eyelid and periocular area, initial encounter (principal); W01.198A Fall on same level from slipping, tripping and stumbling with subsequent striking against other object, initial encounter; F10.120 Alcohol abuse with intoxication, uncomplicated
CPT/HCPCS: 12011; 90471; 70450

== ENCOUNTER 2022-12-16 04:34 | Inpatient (IN) | payer MEDICAID, SELFPAY ==
[2022-12-16] VITALS (138 sets, daily range): BP systolic 85–138; BP diastolic 50–113; PULSE 74–104; RESP 5–39; TEMP 36.5–36.9; O2SAT 77–100
[2022-12-16] MEDS: Etomidate 20 MG/10 ML VIAL IVP (04:30)
--- NOTE | 2022-12-16 04:45 | RT.EKG_ITS ---
APPROVED REPORT Exam: Resting ECG Reason for Exam: post cardiac arrest Patient Location: E HR:92 bpm ECG Measurements Heart Rate 92 AXIS TX 172 P 61 QRSd 109 QRS 50 QT 401 T 36 QTc 497 Conclusion Sinus rhythm...normal P axis, V-rate 60- 99 Probable left atrial enlargement...P >50mS, <-0.10mV V1 Prolonged QT interval...QTc >495mS
--- NOTE | 2022-12-16 04:45 | DI.CT_ITS ---
Exam(s) CT HEAD CERVICAL SPINE WO EXAM: CT HEAD CERVICAL SPINE WO CLINICAL HISTORY: altered mental status. TECHNIQUE: Imaging Protocol: Axial computed tomography images with coronal and sagittal reformatted images were created and reviewed COMPARISON: CT CT HEAD WO from 04/16/2019 FINDINGS: Head CT Ventricles and Extra axial spaces: Normal in size and morphology for the patient's age. Hemorrhage: None. Cerebral parenchyma: Normal. Midline shift: None. Brainstem/Cerebellum: Normal. Calvarium: Normal. Visualized Paranasal sinuses/Mastoids: Clear. Soft tissues: Left frontal scalp hematoma. Cervical Spine CT BONES: Vertebral body heights are maintained. Alignment is normal. There is no evidence of acute frac ture. SOFT TISSUES: No paraspinal hematoma. The airway appears intact. Endotracheal tube and nasogastric t ube noted No pneumothorax is seen at the lung apices. IMPRESSION: Head CT: No acute abnormality. C-spine CT: no acute abnormality. RADIATION DOSE DELIVERED: 1,365.82mGy.cm Total DLP DATA REPOSITORY: All CT scans at this facility are submitted to the National Radiology Data Registry (NRDR) Dose Index Registry (DIR) with the [employer] (A[employer]). RADIATION OPTIMIZATION: All CT scans at this facility use at least one of these dose optimization te chniques: automated exposure control; mA and/or kV adjustment per patient size (includes targeted exa ms where dose is matched to clinical indication); or iterative reconstruction.
--- NOTE | 2022-12-16 04:45 | DI.RAD_ITS ---
Exam(s) XR PORTABLE CHEST AP EXAM: XR PORTABLE CHEST AP CLINICAL HISTORY: cardiac arrest TECHNIQUE: 2D digital imaging was performed. COMPARISON: CR XR CHEST 1V IN DI DEPT from 10/21/2018 FINDINGS: Exam is limited the overlying leads. The patient is on a backboard. Endotracheal tube has been inserted with the tip lying at the level of the aortic arch. LUNGS: Suboptimally inflated but clear. No pleural abnormality seen. HEART: Normal size. AORTA: Normal diameter. BONES: Unremarkable for age. Soft tissues: Unremarkable. IMPRESSION: No acute findings. Satisfactory placement of endotracheal tube. DATA REPOSITORY: RADIATION DOSE DELIVERED:
--- NOTE | 2022-12-16 04:45 | DI.CT_ITS ---
Exam(s) CT CHEST PE ABD PELVIS W EXAM: CT CHEST PE ABD PELVIS W CLINICAL HISTORY: cardiac arrest. TECHNIQUE: Imaging Protocol: Axial CT angiography was performed with multi-slice acquisition and mu lti-planar and/or 3D reconstructions. CONTRAST MATERIAL: Intravenous: Omnipaque 350 Contrast volume:100 ml COMPARISON: No exams were available for comparison FINDINGS: CHEST: Pulmonary Arteries: No evidence of filling defect to suggest pulmonary emboli. Tracheobronchial tree: Endotracheal tube with tip at the level of the aortic arch.. Mediastinum and Qi: No dominant adenopathy or fluid collection. Pulmonary parenchyma: Bilateral complete lower lobe atelectasis. Atelectasis medial right upper lobe . Pleura: No effusion or pneumothorax. Heart: The heart is not dilated. No coronary artery calcifications are seen. Aorta: Thoracic aorta non-dilated. Bones: Scoliosis. Tubes, Catheters, and Lines: Endotracheal tube. Nasogastric tube. ABDOMEN: Liver: Normal density. No measurable mass. Portal, Superior Mesenteric, and Splenic Veins: Unremarkable. Gallbladder and Biliary Tract: No radiodense calculus or dilation. Pancreas: Normal density, no abnormal calcifications or inflammatory process. Spleen: Normal. Adrenals: No masses seen. Kidneys: Normal size, contour and axis. No radiodense stones or obstructive uropathy. No masses seen. Abdominal Aorta: Abdominal portion non-dilated. Bowel: Large quantity of stool in rectosigmoid.: The somewhat distended with stool and fluid elsewher e. Mild nonspecific dilatation of small bowel, fluid filled. Appendix normal.. Peritoneal Cavity: No ascites, collection or mesenteric inflammatory response. Lymph Nodes: Within normal limits. Bones: Unremarkable. Soft Tissues: Unremarkable. PELVIS: Bladder: Taylor catheter. Nearly empty.. Reproductive Organs: Unremarkable as visualized. Lymph Nodes: Within normal limits. Bones: Within normal limits. IMPRESSION: 1. No evidence of pulmonary embolism. Bilateral lower lobe atelectasis. Endotracheal tube in place. 2. Bowel mildly dilated and fluid-filled. No evidence of obstruction. RADIATION DOSE DELIVERED: 1,047.14mGy.cm Total DLP DATA REPOSITORY: All CT scans at this facility are submitted to the National Radiology Data Registry (NRDR) Dose Index Registry (DIR) with the [employer] ([employer]). RADIATION OPTIMIZATION: All CT scans at this facility use at least one of these dose optimization te chniques: automated exposure control; mA and/or kV adjustment per patient size (includes targeted exa ms where dose is matched to clinical indication); or iterative reconstruction.
[2022-12-16 04:48] LABS: HCO3 (Venous) 12 mmol/L (23-28); O2 Sat (Venous) 88 %; TCO2 (Venous) 12 mmol/L (24-29); pCO2 (Venous) 42 mmHg (41-51); pO2 (Venous) 75 mmHg
[2022-12-16 04:50] LABS: pH (Venous) 7.07 (7.31-7.41)
[2022-12-16 04:54] LABS: Abs Immature Grans 0.99 10^3/uL (0.0-0.06); HCT 38.4 % (36.0-46.0); HGB 11.6 g/dL (11.2-15.7); MCH 23.9 pg (27.0-33.0); MCHC 30.2 % (32.0-36.0); MCV 79 fL (80-95); Platelet Count 511 10^3/uL (130-400); RBC 4.85 10^6/uL (3.93-5.22); RDW 19.2 % (11.7-14.6); RDW-SD 54.6 fL; WBC 17.94 10^3/uL (4.4-10.8)
[2022-12-16 04:57] LABS: Source Nasal/Nares
--- NOTE | 2022-12-16 04:58 | ED.GENADUL_ITS ---
Discharge Plan Disposition Patient Disposition: Admit to [facility] Condition: Critical Discharge Details Clinical Impression: Cardiac arrest, Acute respiratory acidosis, Polysubstance abuse Primary Care Provider: None,None ED Provider: Stevenson Cox Home Meds and New Rx's Prescriptions: No Action Narcan 4 MG spray,non-aerosol 4 mg NS DIRECTED Qty: 2 0RF Rx Instructions: One spray (4mg) intranasally into one nostril. Use a new nasal spray for subsequent dose in alternate nostril if needed. May repeat once after initial dose in 2-3 minutes. Medical Decision Making Patient arrives in critical condition. Patient was seen immediately on arrival. 600 -- 32-year-old female with history of hepatitis C, opioid abuse in the past, bipolar disorder, seizure disorder noted in medical history, presents with EMS after cardiac arrest following seizure like activity. Patient received bystander CPR and then 6 minutes of CPR by EMS. Patient had return of spontaneous circulation in the field. She arrives normotensive, unresponsive. Concern for substance abuse and overdose versus respiratory arrest as a result of seizure with aspiration. Igel was removed and patient was intubated for airway protection without complication using etomidate and rocuronium. Sedation maintained with propofol infusion. Postintubation chest x-ray was reviewed and interpreted by me: Endotracheal tube appears to be in appropriate position. Gastric tube not present and suspected kinked. Gastric tube was repositioned by nursing. EKG was reviewed and interpreted by me: Please see report, sinus rhythm 92 bpm, prolonged QT at 497 corrected. Initial labs reviewed and respiratory and metabolic acidosis noted. Vent adjusted to increased respiratory rate. Repeat VBG shows improved pH. I/O left humerus that was placed by EMS not functioning. IO was removed and noted to be bent. Right femoral central line was placed under ultrasound guidance for additional access. UDS is positive for cocaine, THC and benzodiazepine. 742 --I spoke with Dr. Soriano at [facility] -see notes patient is currently on methadone 155 mg daily, her last dose was yesterday. She does note recently relapsed on fentanyl. -- Patient remains hemodynamically stable. She has had some episodes of hypoxia to upper 80s. Oxygen saturation has been titrated up. 8:11 --I spoke with the hospitalist on-call, Dr. Velasquez, discussed ED presentation and course, he will admit the patient. Dr. Mata here evaluating the patient to assist in vent management. Lab Data Lab results reviewed: Yes I reviewed the patient's lab results. Labs: Laboratory Tests Range/Units 12/16/22 12/16/22 12/16/22 04:35 04:35 04:35 WBC (4.4-10.8) 10^3/uL RBC (3.93-5.22) 10^6/uL Hgb (11.2-15.7) g/dL Hct (36.0-46.0) % MCV (80-95) fL MCH (27.0-33.0) pg MCHC (32.0-36.0) % RDW (11.7-14.6) % Plt Count (130-400) 10^3/uL MPV (8.0-11.0) fL Immature Gran % Neutrophils % Band Neutrophils % Lymphocytes % Monocytes % Eosinophils % Basophils % Metamyelocytes % Nucleated RBC % (0.0-0.3) % Absolute Neutrophils (1.2-6.7) 10^3/uL Absolute Lymphocytes (1.2-3.4) 10^3/uL Absolute Monocytes (0.1-0.8) 10^3/uL Absolute Eosinophils (0.0-0.7) 10^3/uL Absolute Basophils (0.0-0.2) 10^3/uL RBC Morphology VBG pH (7.31-7.41) 7.07 L* VBG pCO2 (41-51) mmHg 42 VBG pO2 mmHg 75 VBG HCO3 (23-28) mmol/L 12 L VBG Total CO2 (24-29) mmol/L 12 L VBG O2 Saturation % 88 VBG Base Excess (-2-3) mmol/L < -15 L VBG Lactate (0.6-1.4) mmol/L Sodium (136-145) mmol/L Potassium (3.5-5.1) mmol/L Chloride (98-107) mmol/L Carbon Dioxide (21.0-32.0) mmol/L Anion Gap (3-11) mmol/L BUN (7-18) mg/dL Creatinine (0.55-1.02) mg/dL Est GFR (CKD-EPI 2020) (mL/min/1.73m2) Glucose (74-106) mg/dL Calcium (8.5-10.1) mg/dL Magnesium (1.8-2.4) mg/dL Total Bilirubin (0.2-1.0) mg/dL AST (15-37) U/L ALT (14-59) U/L Alkaline Phosphatase (46-116) U/L Troponin I (<or=60) ng/L Total Protein (6.4-8.2) g/dL Albumin (3.4-5.0) g/dL Salicylates (<2.8) mg/dL 5.7 Urine Opiates Screen (Negative) Urine Methadone Screen (Negative) Acetaminophen (10-30) ug/mL < 2 Ur Barbiturates Screen (Negative) Ur Tricyclics Screen (Negative) Ur Amphetamines Screen (Negative) U Benzodiazepines Scrn (Negative) Urine Cocaine Screen (Negative) Ur THC Screen (Negative) Ethyl Alcohol (<10) mg/dL < 3.0 COVID-19 Source SARS-CoV-2 (PCR) (Negative) Range/Units 12/16/22 12/16/22 12/16/22 04:35 04:35 04:50 WBC (4.4-10.8) 10^3/uL 17.94 H RBC (3.93-5.22) 10^6/uL 4.85 Hgb (11.2-15.7) g/dL 11.6 Hct (36.0-46.0) % 38.4 MCV (80-95) fL 79 L MCH (27.0-33.0) pg 23.9 L MCHC (32.0-36.0) % 30.2 L RDW (11.7-14.6) % 19.2 H Plt Count (130-400) 10^3/uL 511 H MPV (8.0-11.0) fL 9.0 Immature Gran % 0.0 Neutrophils % 56.0 Band Neutrophils % 2 Lymphocytes % 32.0 Monocytes % 6.0 Eosinophils % 0.0 Basophils % 0.0 Metamyelocytes % 4 Nucleated RBC % (0.0-0.3) % 0.0 Absolute Neutrophils (1.2-6.7) 10^3/uL 10.41 H Absolute Lymphocytes (1.2-3.4) 10^3/uL 5.74 H Absolute Monocytes (0.1-0.8) 10^3/uL 1.08 H Absolute Eosinophils (0.0-0.7) 10^3/uL 0.00 Absolute Basophils (0.0-0.2) 10^3/uL 0.00 RBC Morphology Normal VBG pH (7.31-7.41) VBG pCO2 (41-51) mmHg VBG pO2 mmHg VBG HCO3 (23-28) mmol/L VBG Total CO2 (24-29) mmol/L VBG O2 Saturation % VBG Base Excess (-2-3) mmol/L VBG Lactate (0.6-1.4) mmol/L Sodium (136-145) mmol/L 139 Potassium (3.5-5.1) mmol/L 3.7 Chloride (98-107) mmol/L 100 Carbon Dioxide (21.0-32.0) mmol/L 13.5 L Anion Gap (3-11) mmol/L 25.5 H BUN (7-18) mg/dL 6 L Creatinine (0.55-1.02) mg/dL 1.5 H Est GFR (CKD-EPI 2020) (mL/min/1.73m2) 47.19 Glucose (74-106) mg/dL 222 H Calcium (8.5-10.1) mg/dL 8.8 Magnesium (1.8-2.4) mg/dL 2.8 H Total Bilirubin (0.2-1.0) mg/dL 0.2 AST (15-37) U/L 189 H ALT (14-59) U/L 130 H Alkaline Phosphatase (46-116) U/L 176 H Troponin I (<or=60) ng/L < 50 Total Protein (6.4-8.2) g/dL 7.3 Albumin (3.4-5.0) g/dL 3.5 Salicylates (<2.8) mg/dL Urine Opiates Screen (Negative) Urine Methadone Screen (Negative) Acetaminophen (10-30) ug/mL Ur Barbiturates Screen (Negative) Ur Tricyclics Screen (Negative) Ur Amphetamines Screen (Negative) U Benzodiazepines Scrn (Negative) Urine Cocaine Screen (Negative) Ur THC Screen (Negative) Ethyl Alcohol (<10) mg/dL COVID-19 Source Nasal/Nares SARS-CoV-2 (PCR) (Negative) Negative Range/Units 03/12/16/22 12/16/22 04:50 05:40 05:40 WBC (4.4-10.8) 10^3/uL RBC (3.93-5.22) 10^6/uL Hgb (11.2-15.7) g/dL Hct (36.0-46.0) % MCV (80-95) fL MCH (27.0-33.0) pg MCHC (32.0-36.0) % RDW (11.7-14.6) % Plt Count (130-400) 10^3/uL MPV (8.0-11.0) fL Immature Gran % Neutrophils % Band Neutrophils % Lymphocytes % Monocytes % Eosinophils % Basophils % Metamyelocytes % Nucleated RBC % (0.0-0.3) % Absolute Neutrophils (1.2-6.7) 10^3/uL Absolute Lymphocytes (1.2-3.4) 10^3/uL Absolute Monocytes (0.1-0.8) 10^3/uL Absolute Eosinophils (0.0-0.7) 10^3/uL Absolute Basophils (0.0-0.2) 10^3/uL RBC Morphology VBG pH (7.31-7.41) 7.22 L VBG pCO2 (41-51) mmHg 53 H VBG pO2 mmHg 55 VBG HCO3 (23-28) mmol/L 21 L VBG Total CO2 (24-29) mmol/L 20 L VBG O2 Saturation % 82 VBG Base Excess (-2-3) mmol/L -7 L VBG Lactate (0.6-1.4) mmol/L 5.5 H* Sodium (136-145) mmol/L Potassium (3.5-5.1) mmol/L Chloride (98-107) mmol/L Carbon Dioxide (21.0-32.0) mmol/L Anion Gap (3-11) mmol/L BUN (7-18) mg/dL Creatinine (0.55-1.02) mg/dL Est GFR (CKD-EPI 2020) (mL/min/1.73m2) Glucose (74-106) mg/dL Calcium (8.5-10.1) mg/dL Magnesium (1.8-2.4) mg/dL Total Bilirubin (0.2-1.0) mg/dL AST (15-37) U/L ALT (14-59) U/L Alkaline Phosphatase (46-116) U/L Troponin I (<or=60) ng/L Total Protein (6.4-8.2) g/dL Albumin (3.4-5.0) g/dL Salicylates (<2.8) mg/dL Urine Opiates Screen (Negative) Negative Urine Methadone Screen (Negative) Positive A Acetaminophen (10-30) ug/mL Ur Barbiturates Screen (Negative) Negative Ur Tricyclics Screen (Negative) Negative Ur Amphetamines Screen (Negative) Negative U Benzodiazepines Scrn (Negative) Positive A Urine Cocaine Screen (Negative) Positive A Ur THC Screen (Negative) Positive A Ethyl Alcohol (<10) mg/dL COVID-19 Source SARS-CoV-2 (PCR) (Negative) HPI General Mode of arrival: EMS . Date/Time Provider Initiated Documentation: 12/16/22 04:54 . Limitations to Documentation: altered mental status . Information obtained by: EMS . HPI Narrative: 32-year-old female presents unresponsive with EMS after cardiac arrest. History obtained from EMS: Patient apparently used cocaine and then was not feeling well and then had witnessed seizure activity followed by apnea. Bystander CPR was initiated. EMS arrived to find patient in asystole. CPR was continued for 6 minutes at which point there was return of spontaneous circulation. EMS placed i-gel and left humeral IO. Patient received Versed 6.5 mg and fentanyl 100 mcg by EMS. Related Data Home Medications Medication Instructions Recorded Confirmed naloxone 4 mg/actuation nasal 4 mg NS DIRECTED #2 sprays 03/07/18 10/21/18 spray (Narcan) Previous Rx's Medication Instructions Recorded naloxone 4 mg/actuation nasal 4 mg NS DIRECTED #2 sprays 03/07/18 spray (Narcan) Allergies Allergy/AdvReac Type Severity Reaction Status Date / Time amoxicillin trihydrate Allergy Severe Anaphylaxsi Unverified 04/16/19 23:50 [From Amoxil] s aloe vera Allergy Intermediate Hives Unverified 04/16/19 23:50 venom-honey bee Allergy Intermediate Unverified 04/16/19 23:50 [bee venom (honey bee)] erythromycin base Allergy Unknown Unverified 04/16/19 23:50 [Erythromycin Base] Penicillins Allergy Unknown Unverified 04/16/19 23:50 COCONUT Allergy Unknown Uncoded 04/16/19 23:50 General MARISELA: 3 Review of Systems Unobtainable due to mental status PFSH All Active Problems (Updated 12/16/22 @ 07:46 by Stevenson Cox MD) Cardiac arrest (Acute) Acute respiratory acidosis (Acute) Polysubstance abuse (Acute) Hepatitis C (Chronic) Opioid abuse with intoxication (Acute) Social History Smoking/Tobacco Use Status: Current every day Smoking risk assessment performed?: Yes Alcohol Intake: current Alcohol Intake frequency: 3 or more drinks per day Alcohol type: beer Drug use: Daily Do you feel safe in your relationship?: Yes Additional Social history: Unable to obtain. Unresponsive on arrival. Exam Const General: acute distress Nutritional Appearance: well nourished Orientation: not alert Limitations: altered mental status HENMT Head: normocephalic and atraumatic Mouth: moist mucous membranes and tongue abnormal laceration (superficial, no active bleeding) Teeth and gingiva: poor dentition Eyes Sclera: normal sclerae Neck Neck: trachea midline and supple Resp Effort & Inspection: tachypneic Auscultation: rales and rhonchi Other: igel in place Cardio Rate: tachycardic Rhythm: regular rhythm GI Palpation: soft, not firm and not rigid Skin Other: Scattered papules with excoriations full body Neuro General: tone normal Cognition: normal cognition Other: patient moaning, moving head Extrem General: no edema Course Lab/Test Results Lab/Test Results: Laboratory Tests Range/Units 12/16/22 12/16/22 04:35 04:50 VBG pH (7.31-7.41) 7.07 L* VBG pCO2 (41-51) mmHg 42 VBG pO2 mmHg 75 VBG HCO3 (23-28) mmol/L 12 L VBG Total CO2 (24-29) mmol/L 12 L VBG O2 Saturation % 88 VBG Base Excess (-2-3) mmol/L < -15 L COVID-19 Source Nasal/Nares Procedures Central Line Placement Right Femoral: Time Out Performed: Yes Patient Placed on Monitor/Pulse Ox: Yes Prep: mask, gown and gloves Central Line Prep: Chlorhexidine scrub Local Anesthetic: Lidocaine 1% Amount of anesthesia used (mL): 5 Ultrasound Used for Placement: Yes Central Line Lumen Inserted: triple Post Procedure: good blood return, all ports aspirated, flushed, capped and sutured in place with 3-0 nylon Patient Tolerated Procedure: well Complications: none Intubation Time out performed: Yes sedative: Etomidate Mg Given: 20 paralytic: Rocuronium Mg Given: 70 Laryngoscope: fiberoptic video scope ET Tube Size: 7 ET Tube Uncuffed: Yes Tube Secured Depth (cm): 21 Tube Secured Location: lips Tube Placement Confirmation: visualized tube passing through cords, equal breath sounds bilaterally, no breath sounds over epigastrum and confirmation by capnometry Patient Tolerated Procedure: well Intubation Complications: none Critical Care Time Critical Care Time Critical Care Time: Yes Total Critical Care Time: 85 Attestation: I spent greater than 85 minutes addressing this patient's immediate life threats. Please see MDM section of note. This time was spent engaged in work directly related to the patient's care, exclusive of separate procedures, and failure to initiate these interventions would have likely resulted in clinically significant or life threatening deterioration in the patient's condition.
[2022-12-16 05:09] LABS: Salicylate 5.7 mg/dL (<2.8)
[2022-12-16 05:11] LABS: Acetaminophen < 2 ug/mL (10-30)
[2022-12-16 05:13] LABS: ALT 130 U/L (14-59); AST 189 U/L (15-37); Albumin 3.5 g/dL (3.4-5.0); Alkaline Phosphatase 176 U/L (46-116); Anion Gap 25.5 mmol/L (3-11); BUN 6 mg/dL (7-18); Bilirubin, Total 0.2 mg/dL (0.2-1.0); CO2 13.5 mmol/L (21.0-32.0); CREATININE 1.5 mg/dL (0.55-1.02); Calcium 8.8 mg/dL (8.5-10.1); Chloride 100 mmol/L (98-107); Estimated GFR 47.19 (mL/min/1.73m2); Glucose 222 mg/dL (74-106); Magnesium 2.8 mg/dL (1.8-2.4); Potassium 3.7 mmol/L (3.5-5.1); Sodium 139 mmol/L (136-145); Total Protein 7.3 g/dL (6.4-8.2); Troponin I < 50 ng/L (<or=60)
[2022-12-16 05:17] LABS: Absolute Lymphocyte Count 5.74 10^3/uL (1.2-3.4); Absolute Monocyte Count 1.08 10^3/uL (0.1-0.8); Absolute Neutrophil Count 10.41 10^3/uL (1.2-6.7); Bands % 2; Diff Comment Manual Differential; Metamyelocytes % 4; RBC Morphology Normal
[2022-12-16 05:18] LABS: *AMPHETAMINES SCREEN URINE Negative (Negative); *BARBITURATES SCREEN URINE Negative (Negative); *BENZODIAZEPINES SCREEN URINE Positive (Negative); Cannabinoids THC Positive (Negative); Cocaine Screen,Urine Positive (Negative); METHADONE URINE SCREEN Positive (Negative); OPIATES URINE SCREEN Negative (Negative)
[2022-12-16 05:19] LABS: Tricyclic Antidepressants Negative (Negative)
[2022-12-16 05:19] LABS: ETHANOL BLOOD < 3.0 mg/dL (<10)
[2022-12-16 05:28] LABS: COVID-19 PCR Negative (Negative)
[2022-12-16 05:46] LABS: BE (Venous) -7 mmol/L (-2-3); HCO3 (Venous) 21 mmol/L (23-28); O2 Sat (Venous) 82 %; TCO2 (Venous) 20 mmol/L (24-29); pCO2 (Venous) 53 mmHg (41-51); pH (Venous) 7.22 (7.31-7.41); pO2 (Venous) 55 mmHg
[2022-12-16 05:48] LABS: Lactate 5.5 mmol/L (0.6-1.4)
--- NOTE | 2022-12-16 06:21 | DI.VRAD_ITS ---
PROCEDURE INFORMATION: Exam: XR Chest Exam date and time: 12/16/2022 4:39 AM Age: 32 years old Clinical indication: Device placement; Ett placement (vent status); Additional info: Ett tube, cardiac arrest TECHNIQUE: Imaging protocol: Radiologic exam of the chest. Views: 1 view. COMPARISON: SC XR CHEST 1V IN DI DEPT 10/21/2018 11:46 AM FINDINGS: Tubes, catheters and devices: Distal tip of an endotracheal tube is 2.2 cm above the xiomara. Lungs: Lung volumes are low. There is no focal airspace consolidation. Pleural spaces: Unremarkable. No pleural effusion. No pneumothorax. Heart/Mediastinum: Unremarkable. No cardiomegaly. Bones/joints: Unremarkable. IMPRESSION: Low lung volumes. No focal airspace consolidation. Support lines as above. Dictated and Authenticated by: Maged Mohan MD. Ordering:MIKE Gamino MD
[2022-12-16] MEDS: Omnipaque 350 MG/ML 100 ML BTL IJ (06:25)
[2022-12-16] MEDS: Normal Saline - Diluent 50 ML VIAL IJ (06:26)
--- NOTE | 2022-12-16 06:47 | DI.VRAD_ITS ---
PROCEDURE INFORMATION: Exam: CTA Chest With Contrast CTA Abdomen With Contrast Exam date and time: 12/16/2022 6:16 AM Age: 32 years old Clinical indication: Other: Cardiac arrest TECHNIQUE: Imaging protocol: Computed tomographic angiography of the chest with contrast. Computed tomographic angiography of the abdomen with contrast. 3D rendering (Not supervised by radiologist): MIP and/or 3D reconstructed images were created by the technologist. Radiation optimization: All CT scans at this facility use at least one of these dose optimization techniques: automated exposure control; mA and/or kV adjustment per patient size (includes targeted exams where dose is matched to clinical indication); or iterative reconstruction. Contrast material: OMNI 350; Contrast volume: 100 ml; Contrast route: INTRAVENOUS (IV); COMPARISON: CR XR PORTABLE CHEST AP 12/16/2022 4:39 AM FINDINGS: Tubes, catheters and devices: Distal tip of an endotracheal tube is above the xiomara. Distal tip of a nasogastric tube is in the gastric lumen. Distal tip of a right femoral approach central venous catheter is in the right common iliac vein. VASCULATURE: Pulmonary arteries: Normal. No pulmonary emboli. Aorta: No aortic aneurysm. No aortic dissection. Celiac trunk and mesenteric arteries: No occlusion or significant stenosis. Renal arteries: No occlusion or significant stenosis. CHEST: Lungs: There is complete bilateral lower lobe atelectasis. Pleural spaces: Unremarkable. No pneumothorax. No pleural effusion. Heart: Unremarkable. No cardiomegaly. No pericardial effusion. ABDOMEN AND PELVIS: Liver: No mass. Gallbladder and bile ducts: Unremarkable. No calcified stones. No ductal dilation. Pancreas: Unremarkable. No mass. No ductal dilation. Spleen: Unremarkable. No splenomegaly. Adrenal glands: Unremarkable. No mass. Kidneys and ureters: Unremarkable. No solid mass. No hydronephrosis. Stomach and bowel: Unremarkable. No obstruction. No mucosal thickening. Appendix: The appendix is normal. Intraperitoneal space: Unremarkable. No free air. No significant fluid collection. Urinary bladder: There is a urinary catheter in the urinary bladder. Reproductive: The uterus is normal. Lymph nodes: Unremarkable. No enlarged lymph nodes. Bones/joints: Unremarkable. No acute fracture. Soft tissues: Unremarkable. IMPRESSION: 1. Bilateral lower lobe atelectasis. 2. Support lines as above. Dictated and Authenticated by: Maged Mohan MD. Ordering:MIKE Gamino MD
[2022-12-16] MEDS: PROPOFOL 1,000 MG/100 ML BTL 21.6 MG IVPB ×2 (07:01→14:03)
--- NOTE | 2022-12-16 07:23 | DI.VRAD_ITS ---
PROCEDURE INFORMATION: Exam: CT Head Without Contrast Exam date and time: 12/16/2022 6:13 AM Age: 32 years old Clinical indication: Altered mental status/memory loss; Confusion or disorientation TECHNIQUE: Imaging protocol: Computed tomography of the head without contrast. Radiation optimization: All CT scans at this facility use at least one of these dose optimization techniques: automated exposure control; mA and/or kV adjustment per patient size (includes targeted exams where dose is matched to clinical indication); or iterative reconstruction. COMPARISON: CT HEAD WO 04/16/2019 11:56 PM FINDINGS: Brain: No intracranial hemorrhage appreciated. No significant focal mass effect or significant midline shift. Cerebral ventricles: No disproportionate ventriculomegaly. Paranasal sinuses: No air-fluid levels seen. Mastoid air cells: No mastoid effusion. Bones/joints: No acute cranial vault fracture seen. Soft tissues: Left frontal scalp hematoma. IMPRESSION: 1. No intracranial sequelae of trauma appreciated. 2. Additional studies dictated separately. PROCEDURE INFORMATION: Exam: CT Cervical Spine Without Contrast Exam date and time: 12/16/2022 6:13 AM Age: 32 years old Clinical indication: Altered mental status/memory loss; Confusion or disorientation TECHNIQUE: Imaging protocol: Computed tomography of the cervical spine without contrast. Radiation optimization: All CT scans at this facility use at least one of these dose optimization techniques: automated exposure control; mA and/or kV adjustment per patient size (includes targeted exams where dose is matched to clinical indication); or iterative reconstruction. COMPARISON: CT HEAD AND CSPINE W/O CONTRAST 03/01/2018 11:03 PM FINDINGS: Tubes, catheters and devices: Endotracheal and nasogastric tubes. Bones/joints: No acute cervical spine fracture identified. Straightening of the normal cervical lordosis and convex-left curvature may reflect positioning or muscle spasm; correlate clinically. Lungs: Density at the right lung apex. CT scan of the chest dictated separately. Lymph nodes: Bilateral cervical lymph nodes. Soft tissues: See Bones/joints finding. IMPRESSION: 1. No acute osseous injury appreciated in the cervical spine. 2. Density at the right lung apex may represent hemothorax or atelectatic lung tissue. This is incompletely evaluated. CT scan of the chest reported separately. Dictated and Authenticated by: Pat Cooney MD. Ordering:MIKE Gamino MD
[2022-12-16 08:13] LABS: BE -4 mmol/L (-2-3); HCO3 24 mmol/L (22-26); pCO2 52 mmHg (35-45); pH 7.26 (7.35-7.45); pO2 55 mmHg (80-105); sO2 84 % (95-98); tCO2 22 mmol/L (23-27)
[2022-12-16 08:14] LABS: FIO2 100 %; FIO2L VENT L; Site Right Radial
--- NOTE | 2022-12-16 08:31 | PUCC_ITS ---
General Date of Service Date of service: 12/16/22 Time of Service: 08:32 Reason for Admission to ICU: Hypoxic respiratory failure Overdose Assessment and Plan Assessment and plan (1) Cardiac arrest: Status: Acute (2) Prolonged QT interval: Status: Acute (3) Respiratory failure with hypoxia and hypercapnia: Status: Acute (4) Hepatitis C: Status: Chronic (5) Opioid abuse with intoxication: Status: Acute (6) Polysubstance abuse: Status: Acute (7) Leukocytosis: Status: Acute (8) Aspiration into airway: Status: Acute (9) Atelectasis: Status: Acute (10) High anion gap metabolic acidosis: Status: Acute (11) ROSALIND (acute kidney injury): Status: Acute (12) Lactic acidosis: Status: Acute (13) Elevated LFTs: Status: Acute Assessment and plan: This is a 32 yo with hep C, documented seizure disorder and polysubstance use disorder who had an out of hospital asystolic cardiac arrest. She achieved ROSC after 6 minutes of CPR. She is now intubated on maximal ventilatory support. She has bilateral significant atelectasis, likely creating shunt physiology, which is why she has been difficult to oxygenate. Her driving pressure and O2 sat is best at a PEEP of 8, her tidal volume is 6cc/kg. We need to work on lung re- expansion and so will give her nebs in addition to Volera (essentially IPV) tid to help with airway clearance and re-expansion. She likely aspirated at some point. There is decent data to support empiric treatment post cardiac arrest of aspiration pneumonia. I have started Levaquin (anaphylaxis allergy to amoxicillin listed) recognizing her QTc is slightly prolonged. TTM2 trial found no outcome differences with targeting temperature compared to euthermia, so we will simply avoid fevers. She did not receive Narcan in the field or ED, so I have ordered this. She not only has a respiratory acidosis (due to hypoventilation) but also has an anion gap metabolic acidosis, this is likely due to her elevated lactate, however I have ordered a serum osmalality given the overdose. She is euvolemic by clinical exam and POCUS. Given the reported seizure disorder and concern for seizure like activity in the field, I have started Keppra (4g loading dose followed by 1g bid) in addition to ordering an EEG. I am hopeful her respiratory status improves with lung recruitement, however if she is still requiring such high FiO2 levels, she should be considered to transfer to a tertiary center. Recommendations Pulmonary: Hypoxic and hypercapnic respiratory failure - due to overdose resulting in hypoventilation - s/p intubation and mechanical ventilation - volume control: 6cc/kg, PEEP 8, FiO2 100% - driving pressure 18 with above settings this morning - recommend repeating VBG this afternoon to check on CO2 - high risk for ARDS development Atelectasis - PEEP 8 - start Volera TID and albuterol nebs q6h - repeat CXR in am Aspiration - Levaquin 750 daily (anaphylaxis penicillin allergy) - OG tube to low intermittent suction for now - will consider tube feeds tomorrow if not able to be liberated from endotracheal tube Cardiac: Cardiac Arrest - likely due to hypoventilation from overdose - no role for targeted temperature management - TTM2 trial - avoidance of fevers - Tylenol q6hrs PO is sufficient with elevated LFT's - daily awakening trials - no initial purposeful movements after ROSC - recommend K>4.0 and Mg >2.0 Prolonged QTc - repeat EKG daily Renal: ROSALIND - likely prerenal - monitor I/O's Anion Gap Metabolic Acidosis - likely due to elevated lactate - recommend repeat lactate level this afternoon - serum osmalality ordered given tox case I&O: Intake & Output 12/13/22 12/14/22 12/15/22 12/16/22 23:59 23:59 23:59 23:59 Output Total 510 / 510 Balance -510 / -510 Weight 72 kg Daily Fluid Goal:: even GI Nutrition: Nutrition - will start tube feeds tomorrow if unable to liberate from ventilator - OG low intermittent suction for now given aspiration history Elevated LFT's - continue to monitor Infectious Disease: Aspiration - as above, started Levaquin - sputum culture - consider blood cultures Hematologic: Leukocytosis - reactive, will monitor Neurologic: Overdose - Narcan 0.4 IV ordered - propofol for sedation - daily awakening, RASS goal -1 - serum osmalality ordered - recommend finding next of kin Possible seizure - 4g Keppra now, followed by 1g bid - EEG ordered - consider neurology consultation Endocrine: No acute concerns Lines: Right femoral line - can leave in for now, recommend working on other IV access in order to remove fem line with in 3 days Endotracheal tube Taylor Prophylaxis: recommend both DVT and GI ppx Code Status: Full Subjective Critical and life-threatening events over the past 24 hours: This is a 32 yo qwith substance abuse disorder, hepatitis C and a seizure disorder who was unresponsive with seizure like acitivity. She received bystander CPR and upon EMS arrival she was found to be asystolic. She received CPR and did have ROSC after 6 minutes. She was intubated and had a right femoral line placed in the ED. UDS is positive for cocaine, THC and benzo's. She was gu scanned and found a normal head CT. She does have significant bilateral lower lobe atelectasis. Her abdomen and pelvis scan was normal. She did not receive Narcan. On my assessment she was hypoxic despite being on 100% FiO2 and her driving pressures were 28, despite varying levels of PEEP (5-12). I did a brief trial of pressure control given his plataeu pressures. This did not seem to make a difference in her respiratory mechanics, however it may have helped with lung recruitment, as when I switched her back to volume control, her driving pressures, and therefore lung compliance was much improved. With adjusting settings I was able to get her to a driving pressure of 18, still not ideal but much improved. This is with a PEEP of 8. She is still profoundly hypoxic, requiring an FiO2 of 100%, however, I am hoping since her lung parenchyma is healthy (no signs to suggest ARDS at this time), we will be able to recruit the atelectatic lung and hopefully she will improve. Exam Narrative Exam Narrative: POCUS 12/16/22: All views visualized. Normal EF. No pericardial effusion. No pleural effusions. No abdominal free fluid. No B-lines. Bilateral atelectasis, R>L. Normal sized IVC with collapsibility. Gen: NAD, normal respiratory effort, well-nourished HENT: PERRL, nasal turbinates normal without erythema or inflammation, moist oral mucosa, Mallampati 2, No LAD or JVD Chest: No respiratory distress, normal appearance of chest, clear to auscultation bilaterally, no crackles or wheezes, normal inspiratory effort Heart: regular rate and rhythym, no murmurs, rubs or gallops Abdomen: Non-distended, soft, non tender Extremities: No clubbing, edema, cyanosis, rashes Neuro: AAOx3 , non focal Psych: cooperative, appropriate mental affect Most Recent VS/Results Last Vital Signs Temp 36.7 C 12/16/22 04:58 Pulse 86 12/16/22 07:16 Resp 16 12/16/22 07:16 BP 126/80 12/16/22 07:16 Pulse Ox 92 12/16/22 07:16 Laboratory Results - last 24 hr 12/16/22 12/16/22 12/16/22 04:35 04:35 04:35 WBC RBC Hgb Hct MCV MCH MCHC RDW Plt Count MPV Immature Gran % Neutrophils % Band Neutrophils % Lymphocytes % Monocytes % Eosinophils % Basophils % Metamyelocytes % Nucleated RBC % Absolute Neutrophils Absolute Lymphocytes Absolute Monocytes Absolute Eosinophils Absolute Basophils RBC Morphology ABG Sample Site ABG pH ABG pCO2 ABG pO2 ABG HCO3 ABG Total CO2 ABG O2 Saturation ABG Base Excess VBG pH 7.07 L* VBG pCO2 42 VBG pO2 75 VBG HCO3 12 L VBG Total CO2 12 L VBG O2 Saturation 88 VBG Base Excess < -15 L VBG Lactate Oxygen Liter Flow FiO2 Sodium Potassium Chloride Carbon Dioxide Anion Gap BUN Creatinine Est GFR (CKD-EPI 2020) Glucose Calcium Magnesium Total Bilirubin AST ALT Alkaline Phosphatase Troponin I Total Protein Albumin Salicylates 5.7 Urine Opiates Screen Urine Methadone Screen Acetaminophen < 2 Ur Barbiturates Screen Ur Tricyclics Screen Ur Amphetamines Screen U Benzodiazepines Scrn Urine Cocaine Screen Ur THC Screen Ethyl Alcohol < 3.0 COVID-19 Source SARS-CoV-2 (PCR) 12/16/22 12/16/22 12/16/22 04:35 04:35 04:50 WBC 17.94 H RBC 4.85 Hgb 11.6 Hct 38.4 MCV 79 L MCH 23.9 L MCHC 30.2 L RDW 19.2 H Plt Count 511 H MPV 9.0 Immature Gran % 0.0 Neutrophils % 56.0 Band Neutrophils % 2 Lymphocytes % 32.0 Monocytes % 6.0 Eosinophils % 0.0 Basophils % 0.0 Metamyelocytes % 4 Nucleated RBC % 0.0 Absolute Neutrophils 10.41 H Absolute Lymphocytes 5.74 H Absolute Monocytes 1.08 H Absolute Eosinophils 0.00 Absolute Basophils 0.00 RBC Morphology Normal ABG Sample Site ABG pH ABG pCO2 ABG pO2 ABG HCO3 ABG Total CO2 ABG O2 Saturation ABG Base Excess VBG pH VBG pCO2 VBG pO2 VBG HCO3 VBG Total CO2 VBG O2 Saturation VBG Base Excess VBG Lactate Oxygen Liter Flow FiO2 Sodium 139 Potassium 3.7 Chloride 100 Carbon Dioxide 13.5 L Anion Gap 25.5 H BUN 6 L Creatinine 1.5 H Est GFR (CKD-EPI 2020) 47.19 Glucose 222 H Calcium 8.8 Magnesium 2.8 H Total Bilirubin 0.2 AST 189 H ALT 130 H Alkaline Phosphatase 176 H Troponin I < 50 Total Protein 7.3 Albumin 3.5 Salicylates Urine Opiates Screen Urine Methadone Screen Acetaminophen Ur Barbiturates Screen Ur Tricyclics Screen Ur Amphetamines Screen U Benzodiazepines Scrn Urine Cocaine Screen Ur THC Screen Ethyl Alcohol COVID-19 Source Nasal/Nares SARS-CoV-2 (PCR) Negative 12/16/22 12/16/22 12/16/22 04:50 05:40 05:40 WBC RBC Hgb Hct MCV MCH MCHC RDW Plt Count MPV Immature Gran % Neutrophils % Band Neutrophils % Lymphocytes % Monocytes % Eosinophils % Basophils % Metamyelocytes % Nucleated RBC % Absolute Neutrophils Absolute Lymphocytes Absolute Monocytes Absolute Eosinophils Absolute Basophils RBC Morphology ABG Sample Site ABG pH ABG pCO2 ABG pO2 ABG HCO3 ABG Total CO2 ABG O2 Saturation ABG Base Excess VBG pH 7.22 L VBG pCO2 53 H VBG pO2 55 VBG HCO3 21 L VBG Total CO2 20 L VBG O2 Saturation 82 VBG Base Excess -7 L VBG Lactate 5.5 H* Oxygen Liter Flow FiO2 Sodium Potassium Chloride Carbon Dioxide Anion Gap BUN Creatinine Est GFR (CKD-EPI 2020) Glucose Calcium Magnesium Total Bilirubin AST ALT Alkaline Phosphatase Troponin I Total Protein Albumin Salicylates Urine Opiates Screen Negative Urine Methadone Screen Positive A Acetaminophen Ur Barbiturates Screen Negative Ur Tricyclics Screen Negative Ur Amphetamines Screen Negative U Benzodiazepines Scrn Positive A Urine Cocaine Screen Positive A Ur THC Screen Positive A Ethyl Alcohol COVID-19 Source SARS-CoV-2 (PCR) 12/16/22 08:10 WBC RBC Hgb Hct MCV MCH MCHC RDW Plt Count MPV Immature Gran % Neutrophils % Band Neutrophils % Lymphocytes % Monocytes % Eosinophils % Basophils % Metamyelocytes % Nucleated RBC % Absolute Neutrophils Absolute Lymphocytes Absolute Monocytes Absolute Eosinophils Absolute Basophils RBC Morphology ABG Sample Site Right Radial ABG pH 7.26 L ABG pCO2 52 H ABG pO2 55 L ABG HCO3 24 ABG Total CO2 22 L ABG O2 Saturation 84 L ABG Base Excess -4 L VBG pH VBG pCO2 VBG pO2 VBG HCO3 VBG Total CO2 VBG O2 Saturation VBG Base Excess VBG Lactate Oxygen Liter Flow VENT FiO2 100 Sodium Potassium Chloride Carbon Dioxide Anion Gap BUN Creatinine Est GFR (CKD-EPI 2020) Glucose Calcium Magnesium Total Bilirubin AST ALT Alkaline Phosphatase Troponin I Total Protein Albumin Salicylates Urine Opiates Screen Urine Methadone Screen Acetaminophen Ur Barbiturates Screen Ur Tricyclics Screen Ur Amphetamines Screen U Benzodiazepines Scrn Urine Cocaine Screen Ur THC Screen Ethyl Alcohol COVID-19 Source SARS-CoV-2 (PCR) Review of Systems Unobtainable due to endotracheal tube Time spent with patient Time spent in Critical Care: 70 Time spent in Critical care included: Coordination of care, Chart review, Documenting critically ill care, Time at immediate bedside and Discussing critically ill care with other medical staff
--- NOTE | 2022-12-16 09:04 | NUR.NOTE ---
Nursing Note:Portal Architect spoke with Darby Lee in care management. Received permission from Darby per HIPPA disclosure policy under patients without Capacity that we can speak with the patients brother Shar Lima. [phone]. Shar gave permission for the hospital to also speak with their uncle Torres Aggarwal.
--- NOTE | 2022-12-16 09:40 | NUR.NOTE ---
Nursing Note: Shar Lima, brother with decision making capabilites per HIPPA; called stating that these people would be able to visit this patient. Suzanne Pereyra, Milly Pinzon, Karla Aggarwal, and Socorro Wolff (Clarence).
[2022-12-16] MEDS: levoFLOXacin 750 MG/150 ML BAG 100 MG IVPB (09:52)
[2022-12-16 10:14] LABS: BE (Venous) -3 mmol/L (-2-3); HCO3 (Venous) 23 mmol/L (23-28); O2 Sat (Venous) 96 %; TCO2 (Venous) 21 mmol/L (24-29); pCO2 (Venous) 43 mmHg (41-51); pH (Venous) 7.33 (7.31-7.41); pO2 (Venous) 86 mmHg
--- NOTE | 2022-12-16 10:59 | NUR.NOTE ---
Nursing Note: this RN gave report to Molly KNOWLEDGE ARCHITECT pt transfer to ICU 219 with RT assist
[2022-12-16] MEDS: Lactated Ringers 1,000 ML 100 ML IV ×2 (11:26→21:45)
[2022-12-16] MEDS: Albuterol 2.5 MG/3 ML INH SOLN VIAL UPD ×3 (11:28→19:43)
[2022-12-16] MEDS: Normal Saline Flush 10 ML SYR IVP ×2 (11:30→19:42)
[2022-12-16] MEDS: Enoxaparin 40 MG/0.4 ML SYR SC (11:31)
--- NOTE | 2022-12-16 12:02 | W.NEUROCONSU ---
Date of service: 12/16/22 Time of Service: 12:03 Assessment and Plan Assessment and plan (1) Cardiac arrest: Status: Acute Assessment and plan: Questionable seizure activity in the setting of cocaine use and cardiac arrest. Currently intubated on propofol drip. Continue levetiracetam 1000mg BID for now. Agree with EEG as further work-up. History of Present Illness History of Present Illness Chief Complaint: cardiac arrest Narrative: Handedness: unknown. HPI: Vivien is a 32 year-old with Bipolar disorder, chronic hepatitis C, ADHD, and polysubstance abuse on methadone 155mg daily (last dose 12/15/22) with reported recent relapse on Fentanyl. Apparently was using cocaine early this am +/- Fentanyl when she had ? seizure followed by cardiac arrest. CPR performed by bystanders and then by EMS upon arrival x6 minutes until ROSC. Now intubated on proprofol drip. Intake team reporting a history of seizures, but I am unable to verify that at this time. She had no records in [facility] system and none in ours to support this diagnosis. I saw a remote Rx for lamotrigine in 2016...But this could have been given for mood. Work-up as below. She has been loaded wtih LEV 4gm and now maintained on 1000mg BID. EEG pending. Work-up: -CTH (12/16/22): No acute findings. I reviewed these images personally and this is my personal interpretation. -UDS +cocaine, THC, methadone, benzos (given Fentanyl and Versed by EMS) -Labs: W 17.94, plt 511, Cr 1.5, Mg 2.8, AST 189, ALT 130, AlkP 176, trop x 1 neg Review of Systems Unobtainable due to endotracheal tube PFSH All Active Problems (Updated 12/16/22 @ 09:43 by Steffanie Madrid MD) Prolonged QT interval (Acute) Elevated LFTs (Acute) Lactic acidosis (Acute) ROSALIND (acute kidney injury) (Acute) High anion gap metabolic acidosis (Acute) Atelectasis (Acute) Aspiration into airway (Acute) Leukocytosis (Acute) Respiratory failure with hypoxia and hypercapnia (Acute) Cardiac arrest (Acute) Acute respiratory acidosis (Acute) Polysubstance abuse (Acute) Hepatitis C (Chronic) Opioid abuse with intoxication (Acute) Social History Smoking/Tobacco Use Status: Current every day Smoking risk assessment performed?: Yes Alcohol Intake: current Alcohol Intake frequency: 3 or more drinks per day Alcohol type: beer Drug use: Daily Do you feel safe in your relationship?: Yes Additional Social history: Unable to obtain. Unresponsive on arrival. Visit Medication and Allergies Active Medications Generic Name Dose Route Start Last Admin Trade Name Freq PRN Reason Stop Dose Admin Albuterol Sulfate 2.5 mg 12/16/22 08:00 12/16/22 11:28 Albuterol 2.5 Mg/3 Ml Inh Soln Vial UPD 2.5 mg Q6H MICHELLE Administration Dimethicone/Zinc Oxide 0 gm 12/16/22 09:38 Claudia Protect Cream 142 Gm Tube TP PRN PRN Enoxaparin Sodium 40 mg 12/16/22 12:00 12/16/22 11:31 Enoxaparin 40 Mg/0.4 Ml Syr SC 40 mg Q24H MICHELLE Administration Propofol 1,000 mg in 100 mls @ 2.16 mls/hr 12/16/22 04:30 12/16/22 07:01 Diprivan IVPB 50 mcg/kg/min INFUSION MICHELLE 21.6 mls/hr Administration Protocol 5 MCG/KG/MIN Sodium Chloride 500 mls @ 0 mls/hr 12/16/22 04:22 Saline 500ml Bag IV PRN PRN As Directed Levofloxacin 750 mg in 150 mls @ 100 mls/hr 12/16/22 08:00 12/16/22 09:52 Levaquin Premixed Bag IVPB 100 mls/hr Q24H MICHELLE Administration Protocol Levetiracetam 1,000 mg/ Sodium 110 mls @ 400 mls/hr 12/16/22 20:00 Chloride IVPB Q12H MICHELLE Acetaminophen 1,000 mg in 100 mls @ 400 mls/hr 12/16/22 09:45 Ofirmev IVPB Q8H MICHELLE Ringer's Solution 1,000 mls @ 100 mls/hr 12/16/22 09:45 12/16/22 11:26 IV 100 mls/hr INFUSION MICHELLE Administration IV Miscellaneous Supplies 1 each 12/16/22 04:30 Iv Access IV DIRECTED MICHELLE Sodium Chloride 0 ml 12/16/22 04:22 12/16/22 11:30 Normal Saline Flush 10 Ml Syr IVP 80 ml PRN PRN Administration Allergies amoxicillin trihydrate [From Amoxil] Allergy (Severe, Unverified 04/16/19 23:50) Anaphylaxsis aloe vera Allergy (Intermediate, Unverified 04/16/19 23:50) Hives venom-honey bee [bee venom (honey bee)] Allergy (Intermediate, Unverified 04/16/19 23:50) erythromycin base [Erythromycin Base] Allergy (Unknown, Unverified 04/16/19 23:50) Penicillins Allergy (Unknown, Unverified 04/16/19 23:50) COCONUT Allergy (Unknown, Uncoded 04/16/19 23:50) Exam Narrative Exam Narrative: Physical Exam: Constitutional: patient intubated on proprofol drip Neck: Supple, no meningismus CV: RRR, no murmur Resp: CTAB Abd: Soft, nontender, nondistended, +BS Extrem: no edema, warm, no bony irregularities. Neuro: MS/Language/Speech: intubated and sedated; no spontaenous movements; does not respond to voice/noxious stimuli; eyes remain closed CN: PERRL, dolls eyes absent, blink absent Sensory/Motor: Normal bulk and tone. Withdrew to noxious stimuli in bilateral LE; no response in bilateral UE. No spontaneous movements. Reflexes: 2+ DTRs, +Babinski bilaterally; no clonus; neg Robles/Tromner Coordination: not tested Gait: not tested Results Last Vital Signs Temp 97.7 F 12/16/22 10:50 Pulse 84 12/16/22 11:28 Resp 24 12/16/22 11:28 BP 103/65 12/16/22 11:20 Pulse Ox 97 12/16/22 11:28 Labs 12/16/22 04:35 12/16/22 04:35 Labs: Laboratory Results - last 24 hr 12/16/22 12/16/22 12/16/22 04:35 04:35 04:35 WBC RBC Hgb Hct MCV MCH MCHC RDW Plt Count MPV Immature Gran % Neutrophils % Band Neutrophils % Lymphocytes % Monocytes % Eosinophils % Basophils % Metamyelocytes % Nucleated RBC % Absolute Neutrophils Absolute Lymphocytes Absolute Monocytes Absolute Eosinophils Absolute Basophils RBC Morphology ABG Sample Site ABG pH ABG pCO2 ABG pO2 ABG HCO3 ABG Total CO2 ABG O2 Saturation ABG Base Excess VBG pH 7.07 L* VBG pCO2 42 VBG pO2 75 VBG HCO3 12 L VBG Total CO2 12 L VBG O2 Saturation 88 VBG Base Excess < -15 L VBG Lactate Oxygen Liter Flow FiO2 Sodium Potassium Chloride Carbon Dioxide Anion Gap BUN Creatinine Est GFR (CKD-EPI 2020) Glucose Calcium Magnesium Total Bilirubin AST ALT Alkaline Phosphatase Troponin I Total Protein Albumin Salicylates 5.7 Urine Opiates Screen Urine Methadone Screen Acetaminophen < 2 Ur Barbiturates Screen Ur Tricyclics Screen Ur Amphetamines Screen U Benzodiazepines Scrn Urine Cocaine Screen Ur THC Screen Ethyl Alcohol < 3.0 COVID-19 Source SARS-CoV-2 (PCR) 12/16/22 12/16/22 12/16/22 04:35 04:35 04:50 WBC 17.94 H RBC 4.85 Hgb 11.6 Hct 38.4 MCV 79 L MCH 23.9 L MCHC 30.2 L RDW 19.2 H Plt Count 511 H MPV 9.0 Immature Gran % 0.0 Neutrophils % 56.0 Band Neutrophils % 2 Lymphocytes % 32.0 Monocytes % 6.0 Eosinophils % 0.0 Basophils % 0.0 Metamyelocytes % 4 Nucleated RBC % 0.0 Absolute Neutrophils 10.41 H Absolute Lymphocytes 5.74 H Absolute Monocytes 1.08 H Absolute Eosinophils 0.00 Absolute Basophils 0.00 RBC Morphology Normal ABG Sample Site ABG pH ABG pCO2 ABG pO2 ABG HCO3 ABG Total CO2 ABG O2 Saturation ABG Base Excess VBG pH VBG pCO2 VBG pO2 VBG HCO3 VBG Total CO2 VBG O2 Saturation VBG Base Excess VBG Lactate Oxygen Liter Flow FiO2 Sodium 139 Potassium 3.7 Chloride 100 Carbon Dioxide 13.5 L Anion Gap 25.5 H BUN 6 L Creatinine 1.5 H Est GFR (CKD-EPI 2020) 47.19 Glucose 222 H Calcium 8.8 Magnesium 2.8 H Total Bilirubin 0.2 AST 189 H ALT 130 H Alkaline Phosphatase 176 H Troponin I < 50 Total Protein 7.3 Albumin 3.5 Salicylates Urine Opiates Screen Urine Methadone Screen Acetaminophen Ur Barbiturates Screen Ur Tricyclics Screen Ur Amphetamines Screen U Benzodiazepines Scrn Urine Cocaine Screen Ur THC Screen Ethyl Alcohol COVID-19 Source Nasal/Nares SARS-CoV-2 (PCR) Negative 12/16/22 12/16/22 12/16/22 04:50 05:40 05:40 WBC RBC Hgb Hct MCV MCH MCHC RDW Plt Count MPV Immature Gran % Neutrophils % Band Neutrophils % Lymphocytes % Monocytes % Eosinophils % Basophils % Metamyelocytes % Nucleated RBC % Absolute Neutrophils Absolute Lymphocytes Absolute Monocytes Absolute Eosinophils Absolute Basophils RBC Morphology ABG Sample Site ABG pH ABG pCO2 ABG pO2 ABG HCO3 ABG Total CO2 ABG O2 Saturation ABG Base Excess VBG pH 7.22 L VBG pCO2 53 H VBG pO2 55 VBG HCO3 21 L VBG Total CO2 20 L VBG O2 Saturation 82 VBG Base Excess -7 L VBG Lactate 5.5 H* Oxygen Liter Flow FiO2 Sodium Potassium Chloride Carbon Dioxide Anion Gap BUN Creatinine Est GFR (CKD-EPI 2020) Glucose Calcium Magnesium Total Bilirubin AST ALT Alkaline Phosphatase Troponin I Total Protein Albumin Salicylates Urine Opiates Screen Negative Urine Methadone Screen Positive A Acetaminophen Ur Barbiturates Screen Negative Ur Tricyclics Screen Negative Ur Amphetamines Screen Negative U Benzodiazepines Scrn Positive A Urine Cocaine Screen Positive A Ur THC Screen Positive A Ethyl Alcohol COVID-19 Source SARS-CoV-2 (PCR) 12/16/22 12/16/22 08:10 10:06 WBC RBC Hgb Hct MCV MCH MCHC RDW Plt Count MPV Immature Gran % Neutrophils % Band Neutrophils % Lymphocytes % Monocytes % Eosinophils % Basophils % Metamyelocytes % Nucleated RBC % Absolute Neutrophils Absolute Lymphocytes Absolute Monocytes Absolute Eosinophils Absolute Basophils RBC Morphology ABG Sample Site Right Radial ABG pH 7.26 L ABG pCO2 52 H ABG pO2 55 L ABG HCO3 24 ABG Total CO2 22 L ABG O2 Saturation 84 L ABG Base Excess -4 L VBG pH 7.33 VBG pCO2 43 VBG pO2 86 VBG HCO3 23 VBG Total CO2 21 L VBG O2 Saturation 96 VBG Base Excess -3 L VBG Lactate Oxygen Liter Flow VENT FiO2 100 Sodium Potassium Chloride Carbon Dioxide Anion Gap BUN Creatinine Est GFR (CKD-EPI 2020) Glucose Calcium Magnesium Total Bilirubin AST ALT Alkaline Phosphatase Troponin I Total Protein Albumin Salicylates Urine Opiates Screen Urine Methadone Screen Acetaminophen Ur Barbiturates Screen Ur Tricyclics Screen Ur Amphetamines Screen U Benzodiazepines Scrn Urine Cocaine Screen Ur THC Screen Ethyl Alcohol COVID-19 Source SARS-CoV-2 (PCR)
--- NOTE | 2022-12-16 12:03 | W.PM.HP.N ---
Date of service: 12/16/22 Time of Service: 12:03 Assessment and Plan Assessment and plan (1) Cardiac arrest: Status: Acute Assessment and plan: out of hospital cardiac arrest following witnessed tonic clonic seizure in patient w/ known opioid use disorder w/ recent cocaine use. Likely she had seizure then had hypoxic event causing cardiac arrest. Unfortunately we do not have EMS written report nor any ECG taken in the field. I doubt that this was an asystolic arrest but more likely cardiac arrhythmia caused by her cocaine use or by her hypoxic event. Patient had ROSC while out of hospital therfore making asystole the unlikely arrhythmia. Nevertheless, she did not get epinephrine and has not required vasopressors. she remains hemodynamically stable but requiring mechanical ventilation for oxygenation and ventilation. Repeat VBG on most recent vent settings appears to be adequate with improved pH and oxygen and carbon dioxide levels. continue supportive care w/ mechanical ventilation, antibiotics for probable aspiration; good pulmonary toiletry, lung recruitment for her atelectasis. monitor electrolytes, renal fxn (urine output/labs) and liver function. check EEG to look for any subclinical seizure activity. continue keppra at 1000 mg iv q12h. Neurology consult obtained w/ Dr. Vieyra who presented to ICU to evaluate patient. repeat her EKG watching for worsening QTC. Critical care time spent interviewing and examining the patient, reviewing studies, discussing case with patient's nurse and consulting physicians was 60 minutes (2) Respiratory failure with hypoxia and hypercapnia: Status: Acute Assessment and plan: as above (3) Aspiration into airway: Status: Acute (4) Atelectasis: Status: Acute (5) High anion gap metabolic acidosis: Status: Acute Assessment and plan: likely d/t seizure. repeat lactate level and BMP, VBG. continue iv hydration at low rate overnight (6) Polysubstance abuse: Status: Acute (7) ROSALIND (acute kidney injury): Status: Acute Assessment and plan: gentle iv hydration, monitor urine output, BMP; may need to adjust levaquin dose for her renal fxn (8) Elevated LFTs: Status: Acute Assessment and plan: monitor LFT, likely secondary to shock liver from cardiac arrest (9) Prolonged QT interval: Status: Acute Assessment and plan: monitor on telemetry and w/ serial EKG as patient is on levaquin and propofol and has ROSALIND (10) Opioid abuse with intoxication: Status: Acute (11) Hepatitis C: Status: Chronic Assessment and plan: monitor LFT History of Present Illness History of Present Illness Chief Complaint: cardiopulmonary arrest Narrative: 32 yr old female w/ hx of opioid use disorder, client of [facility] and suppose to be on methadone treatment but has been using fentanyl and reportedly was using cocaine today, also PMH of HCV infection, bipolar disorder who had cardiopulmonary arrest and witnessed seizure. Patient reportedly had CPR for 6+ minutes. ROSC was achieved in the field after EMS had arrived. Patient had an IO line placed in the left humerus and patient was given fentanyl and versed by EMS for agitation. A supraglottic airway (I-GEL) was placed out of hospital. She was intubated and put on mechanical ventilation by Dr. Cox, ED provider. Dr. Madrid, paper plate machine tender, saw her while in the E.D. R. femoral CVP line was placed by Dr. Cox. Her urine drug screen was positive for cocaine, THC, and benzodiazepines. Dr. Madrid and R.T. worked on opitimizing her ventilation while she was in the E.D. w/ recruitment, optimizing her PEEP (8cm) and using ARDS network TV of 6 mL/kg. She has been weaned to FIO2 of 30% and TV of 290 mL. She is breathing at 22 bpm, PAP 15 cm and MV 5.5 lpm. SPO2 now 98%. Review of Systems Unobtainable due to endotracheal tube and Unobtainable due to mental status PFSH All Active Problems Prolonged QT interval (Acute) Elevated LFTs (Acute) Lactic acidosis (Acute) ROSALIND (acute kidney injury) (Acute) High anion gap metabolic acidosis (Acute) Atelectasis (Acute) Aspiration into airway (Acute) Leukocytosis (Acute) Respiratory failure with hypoxia and hypercapnia (Acute) Cardiac arrest (Acute) Acute respiratory acidosis (Acute) Polysubstance abuse (Acute) Hepatitis C (Chronic) Opioid abuse with intoxication (Acute) Medical History Bipolar 1 disorder Surgical History S/P Family History (Updated 12/16/22 @ 12:34 by Amador Velasquez MD) Father Cirrhosis Mother Substance use disorder Brother No problems noted. Sister No problems noted. Social History (Updated 12/16/22 @ 12:31 by Amador Velasquez MD) Smoking/Tobacco Use Status: Current every day Smoking risk assessment performed?: Yes Alcohol Intake: current Alcohol Intake frequency: 3 or more drinks per day Alcohol type: beer Drug use: Daily Household members: other Housing: other Details: transitional housing Number of Children: 1 Do you feel safe in your relationship?: Yes Additional Social history: Unable to obtain. Unresponsive on arrival. History History 2 Para Hx # Term Pregnancies 1 Multiple births Hx # Pregnancies Ectopic pregnancies AB induced Hx Number of Living Children 1 AB spontaneous 1 Meds Allergies and Home Medications Allergies Allergy/AdvReac Type Severity Reaction Status Date / Time amoxicillin trihydrate Allergy Severe Anaphylaxsi Unverified 04/16/19 23:50 [From Amoxil] s aloe vera Allergy Intermediate Hives Unverified 04/16/19 23:50 venom-honey bee Allergy Intermediate Unverified 04/16/19 23:50 [bee venom (honey bee)] erythromycin base Allergy Unknown Unverified 04/16/19 23:50 [Erythromycin Base] Penicillins Allergy Unknown Unverified 04/16/19 23:50 COCONUT Allergy Unknown Uncoded 04/16/19 23:50 Home Medications Medication Instructions Recorded Confirmed Type naloxone 4 mg/actuation nasal 4 mg NS DIRECTED #2 sprays 03/07/18 10/21/18 Rx spray (Narcan) Exam Const General: patient mechanically ventilated Nutritional Appearance: underweight Orientation: obtunded Limitations: altered mental status [facility] Head: normal to inspection, no palpable skull fracture, normocephalic and atraumatic Ears: external ears normal General nose exam: external nose normal Face and sinus: normal facial exam, face symmetric and no ecchymosis Mouth: oral mucosae normal, abnormal tongue (small laceration/abrasion on left side) and moist mucous membranes Teeth and gingiva: fair dentition (some missing molars and premolars on left lower mandible) Throat: posterior oropharynx normal Eyes General: appearance normal, both eyes and all related structures Alignment and Position: alignment normal Periorbital: periorbital findings normal Eyelids: eyelids normal Conjunctivae: conjunctivae normal Sclera: sclerae normal Cornea: corneas normal Pupils: PERRL Neck Neck: normal visual inspection, full ROM, no lymphadenopathy, trachea midline, supple and no JVD Thyroid: thyroid normal Chest Chest: normal inspection of the chest Resp Effort & Inspection: normal respiratory effort Auscultation: diminished lung sounds bilaterally in the lower lung amaya, no rhonchi and no wheezes Cardio Jugular venous pressure: no JVD Palpation: normal PMI Rate: regular rate Rhythm: regular rhythm Heart Sounds: S1 normal and S2 normal Bruits: no abdominal aortic bruits Pulses: normal peripheral pulses GI Inspection: normal to inspection Palpation: soft and no hepatosplenomegaly Percussion: normal to percussion Auscultation: normal bowel sounds Back/Spine/Pelvis Cervical Spine: normal cervical lordosis Skin General skin exam: no rashes or lesions noted and other (multiple tatoos: right neck to all who are lost, right foot love,) Neuro General: patient obtunded (sedated on propofol drip) Cranial Nerves: PERRL, no nystagmus and tongue midline Motor: muscle tone normal throughout Sensory Exam: lower extremity (intact to painful stimulation) DTR's: Rt Patellar: 2+, Lt Patellar: 2+, Rt Ankle: 2+ and Lt Ankle: 2+ Plantar Reflexes: Upgoing: bilateral Comatose Patient: no decerebrate rigidity, no decorticate rigidity, doll's eye reflex present and response to noxious stimuli present Pupils: Normal pupillary reactivity/response: bilateral Extrem General: normal to inspection, capillary refill normal, no joint enlargement and no clubbing, cyanosis or edema Psych Appearance: other (unable to assess) Results Imaging Chest x-ray: report reviewed and image reviewed Abdomen CT scan report/results: report reviewed CT scan - chest: report reviewed and image reviewed CT scan - pelvis: report reviewed EKG: image reviewed Labs 12/16/22 04:35 12/16/22 04:35 Labs: Laboratory Results - last 24 hr 12/16/22 12/16/22 12/16/22 04:35 04:35 04:35 WBC RBC Hgb Hct MCV MCH MCHC RDW Plt Count MPV Immature Gran % Neutrophils % Band Neutrophils % Lymphocytes % Monocytes % Eosinophils % Basophils % Metamyelocytes % Nucleated RBC % Absolute Neutrophils Absolute Lymphocytes Absolute Monocytes Absolute Eosinophils Absolute Basophils RBC Morphology ABG Sample Site ABG pH ABG pCO2 ABG pO2 ABG HCO3 ABG Total CO2 ABG O2 Saturation ABG Base Excess VBG pH 7.07 L* VBG pCO2 42 VBG pO2 75 VBG HCO3 12 L VBG Total CO2 12 L VBG O2 Saturation 88 VBG Base Excess < -15 L VBG Lactate Oxygen Liter Flow FiO2 Sodium Potassium Chloride Carbon Dioxide Anion Gap BUN Creatinine Est GFR (CKD-EPI 2020) Glucose Calcium Magnesium Total Bilirubin AST ALT Alkaline Phosphatase Troponin I Total Protein Albumin Salicylates 5.7 Urine Opiates Screen Urine Methadone Screen Acetaminophen < 2 Ur Barbiturates Screen Ur Tricyclics Screen Ur Amphetamines Screen U Benzodiazepines Scrn Urine Cocaine Screen Ur THC Screen Ethyl Alcohol < 3.0 COVID-19 Source SARS-CoV-2 (PCR) 12/16/22 12/16/22 12/16/22 04:35 04:35 04:50 WBC 17.94 H RBC 4.85 Hgb 11.6 Hct 38.4 MCV 79 L MCH 23.9 L MCHC 30.2 L RDW 19.2 H Plt Count 511 H MPV 9.0 Immature Gran % 0.0 Neutrophils % 56.0 Band Neutrophils % 2 Lymphocytes % 32.0 Monocytes % 6.0 Eosinophils % 0.0 Basophils % 0.0 Metamyelocytes % 4 Nucleated RBC % 0.0 Absolute Neutrophils 10.41 H Absolute Lymphocytes 5.74 H Absolute Monocytes 1.08 H Absolute Eosinophils 0.00 Absolute Basophils 0.00 RBC Morphology Normal ABG Sample Site ABG pH ABG pCO2 ABG pO2 ABG HCO3 ABG Total CO2 ABG O2 Saturation ABG Base Excess VBG pH VBG pCO2 VBG pO2 VBG HCO3 VBG Total CO2 VBG O2 Saturation VBG Base Excess VBG Lactate Oxygen Liter Flow FiO2 Sodium 139 Potassium 3.7 Chloride 100 Carbon Dioxide 13.5 L Anion Gap 25.5 H BUN 6 L Creatinine 1.5 H Est GFR (CKD-EPI 2020) 47.19 Glucose 222 H Calcium 8.8 Magnesium 2.8 H Total Bilirubin 0.2 AST 189 H ALT 130 H Alkaline Phosphatase 176 H Troponin I < 50 Total Protein 7.3 Albumin 3.5 Salicylates Urine Opiates Screen Urine Methadone Screen Acetaminophen Ur Barbiturates Screen Ur Tricyclics Screen Ur Amphetamines Screen U Benzodiazepines Scrn Urine Cocaine Screen Ur THC Screen Ethyl Alcohol COVID-19 Source Nasal/Nares SARS-CoV-2 (PCR) Negative 12/16/22 12/16/2212/16/23 04:50 05:40 05:40 WBC RBC Hgb Hct MCV MCH MCHC RDW Plt Count MPV Immature Gran % Neutrophils % Band Neutrophils % Lymphocytes % Monocytes % Eosinophils % Basophils % Metamyelocytes % Nucleated RBC % Absolute Neutrophils Absolute Lymphocytes Absolute Monocytes Absolute Eosinophils Absolute Basophils RBC Morphology ABG Sample Site ABG pH ABG pCO2 ABG pO2 ABG HCO3 ABG Total CO2 ABG O2 Saturation ABG Base Excess VBG pH 7.22 L VBG pCO2 53 H VBG pO2 55 VBG HCO3 21 L VBG Total CO2 20 L VBG O2 Saturation 82 VBG Base Excess -7 L VBG Lactate 5.5 H* Oxygen Liter Flow FiO2 Sodium Potassium Chloride Carbon Dioxide Anion Gap BUN Creatinine Est GFR (CKD-EPI 2020) Glucose Calcium Magnesium Total Bilirubin AST ALT Alkaline Phosphatase Troponin I Total Protein Albumin Salicylates Urine Opiates Screen Negative Urine Methadone Screen Positive A Acetaminophen Ur Barbiturates Screen Negative Ur Tricyclics Screen Negative Ur Amphetamines Screen Negative U Benzodiazepines Scrn Positive A Urine Cocaine Screen Positive A Ur THC Screen Positive A Ethyl Alcohol COVID-19 Source SARS-CoV-2 (PCR) 12/16/22 12/16/22 08:10 10:06 WBC RBC Hgb Hct MCV MCH MCHC RDW Plt Count MPV Immature Gran % Neutrophils % Band Neutrophils % Lymphocytes % Monocytes % Eosinophils % Basophils % Metamyelocytes % Nucleated RBC % Absolute Neutrophils Absolute Lymphocytes Absolute Monocytes Absolute Eosinophils Absolute Basophils RBC Morphology ABG Sample Site Right Radial ABG pH 7.26 L ABG pCO2 52 H ABG pO2 55 L ABG HCO3 24 ABG Total CO2 22 L ABG O2 Saturation 84 L ABG Base Excess -4 L VBG pH 7.33 VBG pCO2 43 VBG pO2 86 VBG HCO3 23 VBG Total CO2 21 L VBG O2 Saturation 96 VBG Base Excess -3 L VBG Lactate Oxygen Liter Flow VENT FiO2 100 Sodium Potassium Chloride Carbon Dioxide Anion Gap BUN Creatinine Est GFR (CKD-EPI 2020) Glucose Calcium Magnesium Total Bilirubin AST ALT Alkaline Phosphatase Troponin I Total Protein Albumin Salicylates Urine Opiates Screen Urine Methadone Screen Acetaminophen Ur Barbiturates Screen Ur Tricyclics Screen Ur Amphetamines Screen U Benzodiazepines Scrn Urine Cocaine Screen Ur THC Screen Ethyl Alcohol COVID-19 Source SARS-CoV-2 (PCR) Last Vital Signs Temp 36.5 C 12/16/22 10:50 Pulse 84 12/16/22 11:28 Resp 24 12/16/22 11:28 BP 103/65 12/16/22 11:20 Pulse Ox 97 12/16/22 11:28 Time Spent Time spent with Patient: 55-74 minutes Time was spent: preparing to see the patient(eg.review tests), obtaining and/or reviewing separately otained hiistory (Patient's bilingual case manager Melissa and patient's uncleTorres), ordering medications,tests, procedures, referring, communicating with other health pet caretaker (discussion w/ Dr. Madrid and Dr. Vieyra), indepentently interpreting results, counseling the patient (counseling patient's uncle) and care coordination
[2022-12-16] MEDS: ACETAMINOPHEN 1,000 MG/100 ML BTL 400 MG IVPB ×2 (12:15→18:06)
[2022-12-16 12:59] LABS: BE (Venous) -1 mmol/L (-2-3); HCO3 (Venous) 25 mmol/L (23-28); O2 Sat (Venous) 94 %; TCO2 (Venous) 23 mmol/L (24-29); pCO2 (Venous) 47 mmHg (41-51); pH (Venous) 7.34 (7.31-7.41); pO2 (Venous) 70 mmHg
--- NOTE | 2022-12-16 13:00 | RT.EKG_ITS ---
APPROVED REPORT Exam: Resting ECG Reason for Exam: QTC monitoring, post cardiac arrest Patient Location: I HR:80 bpm ECG Measurements Heart Rate 80 AXIS WI 145 P 66 QRSd 106 QRS 71 QT 388 T 43 QTc 448 Conclusion Sinus rhythm...normal P axis, V-rate 50- 99 Borderline T abnormalities, anterior leads...T flat or neg, V2-V4 Baseline wander in lead(s) II,III,aVF,V6
[2022-12-16 13:01] LABS: Lactate 0.8 mmol/L (0.6-1.4)
[2022-12-16 13:30] LABS: ALT 116 U/L (14-59); AST 174 U/L (15-37); Alkaline Phosphatase 134 U/L (46-116); Anion Gap 8.7 mmol/L (3-11); BUN 10 mg/dL (7-18); Bilirubin, Direct 0.1 mg/dL (0.0-0.2); Bilirubin, Total 0.2 mg/dL (0.2-1.0); CO2 26.3 mmol/L (21.0-32.0); CREATININE 0.9 mg/dL (0.55-1.02); Calcium 7.9 mg/dL (8.5-10.1); Chloride 105 mmol/L (98-107); Estimated GFR 87.11 (mL/min/1.73m2); Glucose 80 mg/dL (74-106); Potassium 3.5 mmol/L (3.5-5.1); Sodium 140 mmol/L (136-145); Total Protein 6.4 g/dL (6.4-8.2)
[2022-12-16 13:31] LABS: Troponin I 73 ng/L (<or=60)
[2022-12-16 13:36] LABS: Troponin I 79 ng/L (<or=60)
--- NOTE | 2022-12-16 14:43 | CHAPLAIN ---
Vivien was admitted to the ICU this morning from the ED. She was treated for a cardiac arrest and respiratory issues in the ED and is now intubated. An uncle has visited, and other family members have called. Her uncle told nursing staff that he has looked out for since her mom 20 years ago form an overdose. I left a prayer shawl for Vivien.
[2022-12-16] MEDS: fentaNYL 100 MCG/2 ML VIAL 50 MCG IVP (15:15)
--- NOTE | 2022-12-16 15:19 | RESPIRATORY ---
RT came up to ICU to check vent and administer nebulized treatment. Pt woke up agitated when nursing attempted to reposition her. With the agitation, pt was noted to be thrashing around and attempting to pull our her ETT tube. Pt did successfully disconnect her ETT tube from the ventilator circuit multiple times during this episode. When pt was able to calm down, her SpO2 and ventilator status had declined rapidly, calling for RT to temporarily bag the pt. Pt was finally able to recover and be placed back on the ventilator with an FiO2 100% for recovery period.
[2022-12-16] MEDS: Propofol 200 MG/20 ML VIAL 100 MG IVP (15:20)
--- NOTE | 2022-12-16 15:42 | PHA.REVIEW2 ---
Pharmacy Admission Review - Admission Clinical Review (Last Reviewed 12/16/22 @ 12:30 by Amador Velasquez MD) Prolonged QT interval (Acute) Elevated LFTs (Acute) Lactic acidosis (Acute) ROSALIND (acute kidney injury) (Acute) High anion gap metabolic acidosis (Acute) Atelectasis (Acute) Aspiration into airway (Acute) Leukocytosis (Acute) Respiratory failure with hypoxia and hypercapnia (Acute) Cardiac arrest (Acute) Acute respiratory acidosis (Acute) Polysubstance abuse (Acute) Opioid abuse with intoxication (Acute) amoxicillin trihydrate [From Amoxil] Allergy (Severe, Unverified 04/16/19 23:50) Anaphylaxsis aloe vera Allergy (Intermediate, Unverified 04/16/19 23:50) Hives venom-honey bee [bee venom (honey bee)] Allergy (Intermediate, Unverified 04/16/19 23:50) erythromycin base [Erythromycin Base] Allergy (Unknown, Unverified 04/16/19 23:50) Penicillins Allergy (Unknown, Unverified 04/16/19 23:50) COCONUT Allergy (Unknown, Uncoded 04/16/19 23:50) Resuscitation Status Full Code Height 5 ft 1 in Weight 65.7 kg - Renal Dosing Renal Dosing: BUN 10 mg/dL (7-18) 12/16/22 12:49 Creatinine 0.9 mg/dL (0.55-1.02) 12/16/22 12:49 Medications needing adjustments: Reviewed (eCrCl 77.8 ml/min -- reached out to provider to let them know her renal fxn will support normal dosing; no adjustment needed until eCrCl falls below 50 ml/min) - Anticoagulation Anticoagulation: Hgb 11.6 g/dL (11.2-15.7) 12/16/22 04:35 Hct 38.4 % (36.0-46.0) 12/16/22 04:35 Plt Count 511 10^3/uL (130-400) H 12/16/22 04:35 Creatinine 0.9 mg/dL (0.55-1.02) 12/16/22 12:49 DVT Prophylaxis: Reviewed Medications: Enoxaparin - Opiate Usage Evaluate Pain Scale/Pains Meds: Reviewed (fentanyl prn (mech ventilation)) - Relevant Labs Sodium 140 mmol/L (136-145) 12/16/22 12:49 Potassium 3.5 mmol/L (3.5-5.1) 12/16/22 12:49 Chloride 105 mmol/L (98-107) 12/16/22 12:49 Magnesium 2.8 mg/dL (1.8-2.4) H 12/16/22 04:35 Electrolytes, C-Reactive P, ESR: Reviewed - DM Control DM Control: Glucose 80 mg/dL (74-106) 12/16/22 12:49 Finger Stick Blood Glucose 94 Finger Stick Blood Glucose 94 DM Control: N/A - Cardiac Review Cardiac Review: Troponin I 73 ng/L (<or=60) H* 12/16/22 12:49 BP, HR, EF%: Reviewed - Qtc Review QTc: Reviewed (QTc upon admission 494 -- MD decided to prescribe levaquin for likely aspiration, they are aware of the QT prolongation risk, will continue to monitor for additional qt prolonging meds) - IV to PO Switch IV Medications: Reviewed - Home Meds Home Med List reviewed: Reviewed Relevent Home Meds Not ordered & why?: methadone 155mg daily (intubated) - Current meds Current Medication Order Review: Reviewed (currently intubated -- precedex, fentanyl and propofol for sedation)
[2022-12-16] MEDS: PROPOFOL 1,000 MG/100 ML BTL 34.56 MG IVPB ×2 (16:20→18:41)
--- NOTE | 2022-12-16 17:11 | W.PM.OP ---
Date of service: 12/16/22 Time of Service: 15:30 Operative Note Operative Note PRE-OP DIAGNOSIS: Mucus plugging ANESTHESIA TYPE: General LMA/ETT (patient already intubated for medical reasons) Procedure Description: Bronchoscopy Indication: Mucus plugging, respiratory failure Procedure performed: Flexible bronchoscopy with bronchial washings Sedation plan: General anesthesia: patient on propofol infusion at 80mg/hour Medications used: 50mcg fentanyl and 100mg propofol bolus given edlonte-procedure Procedure performed in an emergent scenario and so consent was not obtained. A 5.0 Glydescope BFlex disposable bronchoscope was used as the patient had a 7.0 ETT and the Olympus bronchoscope was too large to fit in this ETT. The bronchoscope was inserted into the airways. The trachea was midline and without lesion or injury. The mucosa appeared normal and there were no signs of tracheomalacia. The xiomara was sharp. All bronchial subsegments were visualized within each lobe and showed significant lower lobe mucus plugging, with complete obstruction of the bilateral lower lobe bronchial subsegments due to mucus/secretions. The RML subsegments also had significant mucus plugging present. Two bronchial washings were performed to assist in therapeutic airway clearance. The bronchoscope was then removed and the case terminated. The patient remained stable during the procedure and remains intubated in the ICU. Samples collected: 15cc of bronchial washings Testing ordered:Cell diff, bacterial, fungal and AFB cultures, viral panel Complications:None Steffanie Madrid MD Pulmonary & Critical Care Medicine
[2022-12-16] MEDS: Pantoprazole 40 MG VIAL IVP (18:07)
[2022-12-16] MEDS: POTASSIUM CHLORIDE 20 MEQ/100 ML BAG 50 MEQ IVPB (18:09)
[2022-12-16] MEDS: dexmedeTOMidine IN 0.9 % NACL 400 MCG/100 ML BTL IV (18:09)
[2022-12-16 18:18] LABS: Osmolality Serum 292 mOsm/kg (275-295)
[2022-12-16 18:54] LABS: Troponin I < 50 ng/L (<or=60)
[2022-12-16] MEDS: Dexamethasone 10 MG/ML VIAL IVP (19:11)
[2022-12-16] MEDS: Normal Saline 500 ML 30 ML IV (19:43)
[2022-12-16] MEDS: levETIRAcetam 1,000 MG in Normal Saline 100 ML 400 MG IVPB (19:43)
[2022-12-16] MEDS: Lactated Ringers 500 ML IV (20:45)
[2022-12-16] MEDS: PROPOFOL 1,000 MG/100 ML BTL 25.92 MG IVPB (22:08)
[2022-12-17] VITALS (20 sets, daily range): BP systolic 96–112; BP diastolic 56–73; PULSE 48–73; RESP 7–28; TEMP 36.8–37.1; O2SAT 94–100
[2022-12-17] MEDS: ACETAMINOPHEN 1,000 MG/100 ML BTL 400 MG IVPB (01:35)
[2022-12-17] MEDS: Albuterol 2.5 MG/3 ML INH SOLN VIAL UPD (01:35)
[2022-12-17] MEDS: PROPOFOL 1,000 MG/100 ML BTL 23.76 MG IVPB (01:57)
[2022-12-17] MEDS: fentaNYL 100 MCG/2 ML VIAL IVP ×2 (02:27→06:45)
[2022-12-17] MEDS: PROPOFOL 1,000 MG/100 ML BTL 19.44 MG IVPB (05:47)
[2022-12-17 06:46] LABS: Abs Immature Grans 0.05 10^3/uL (0.0-0.06); Absolute Lymphocyte Count 0.94 10^3/uL (1.2-3.4); Absolute Monocyte Count 0.22 10^3/uL (0.1-0.8); Absolute Neutrophil Count 11.59 10^3/uL (1.2-6.7); Basophils % 0.2; HGB 10.1 g/dL (11.2-15.7); Immature Grans % 0.4; Lymphocytes % 7.3; MCH 23.7 pg (27.0-33.0); MCHC 31.6 % (32.0-36.0); MCV 75 fL (80-95); MPV 9.3 fL (8.0-11.0); Monocytes % 1.7; Neutrophils % 90.4; Platelet Count 281 10^3/uL (130-400); RBC 4.26 10^6/uL (3.93-5.22); RDW 19.5 % (11.7-14.6); RDW-SD 52.9 fL; WBC 12.82 10^3/uL (4.4-10.8)
[2022-12-17 06:56] LABS: Absolute Basophil Count 0.03 10^3/uL (0.0-0.2)
[2022-12-17 06:59] LABS: Magnesium 2.2 mg/dL (1.8-2.4)
[2022-12-17] MEDS: LORazepam 2 MG/ML VIAL 1 MG IVP (07:06)
[2022-12-17] MEDS: Normal Saline Flush 10 ML SYR IVP (07:07)
[2022-12-17 07:23] LABS: ALT 87 U/L (14-59); AST 97 U/L (15-37); Albumin 2.6 g/dL (3.4-5.0); Alkaline Phosphatase 105 U/L (46-116); Anion Gap 12.1 mmol/L (3-11); BUN 10 mg/dL (7-18); Bilirubin, Total 0.2 mg/dL (0.2-1.0); CO2 23.9 mmol/L (21.0-32.0); CREATININE 0.9 mg/dL (0.55-1.02); Calcium 8.4 mg/dL (8.5-10.1); Chloride 107 mmol/L (98-107); Estimated GFR 87.11 (mL/min/1.73m2); Glucose 122 mg/dL (74-106); Sodium 143 mmol/L (136-145); Total Protein 5.8 g/dL (6.4-8.2)
[2022-12-17] MEDS: Methadone Liquid 10 MG/ML 155 MG PO (07:28)
--- NOTE | 2022-12-17 07:40 | RT.EKG_ITS ---
APPROVED REPORT Exam: Resting ECG Reason for Exam: bradycardia, QTC monitoring Patient Location: I HR:70 bpm ECG Measurements Heart Rate 70 AXIS DE 149 P 45 QRSd 105 QRS 16 QT 431 T 38 QTc 466 Conclusion Sinus rhythm...normal P axis, V-rate 50- 99 RSR' in V1 or V2, probably normal variant...small R' only Baseline wander in lead(s) V6
--- NOTE | 2022-12-17 07:44 | W.PULMCC ---
General Date of Service Date of service: 12/17/22 Time of Service: 07:45 Reason for Admission to ICU: Hypoxic respiratory failure Overdose Assessment and Plan Assessment and plan (1) Cardiac arrest: Status: Acute (2) Prolonged QT interval: Status: Acute (3) Respiratory failure with hypoxia and hypercapnia: Status: Acute (4) Hepatitis C: Status: Chronic (5) Opioid abuse with intoxication: Status: Acute (6) Polysubstance abuse: Status: Acute (7) Leukocytosis: Status: Acute (8) Self extubation: Status: Acute (9) Aspiration into airway: Status: Acute (10) Atelectasis: Status: Acute (11) High anion gap metabolic acidosis: Status: Acute (12) ROSALIND (acute kidney injury): Status: Acute (13) Lactic acidosis: Status: Acute (14) Elevated LFTs: Status: Acute Assessment and plan: This is a 32 yo with hep C, documented seizure disorder and polysubstance use disorder who had an out of hospital asystolic cardiac arrest. She achieved ROSC after 6 minutes of CPR. She required intubation and had repeated and significant mucus plugging resulting in desaturations and elevated airway pressures. I performed a diagnostic and therapeutic bedside bronchoscopy and sent bronchial washings for analysis. She still continued significant suctioning overnight. She became bradycardic and so propofol was decreased and she was able to self extubate this morning. She is stable after this event. She should remain on Levaquin for at least a 7 day course due to the significant aspiration pneumonia. This morning she is wishing to leave and wants her methadone. There is still no great clarity regarding she did truly seize or not. If she leaves A, it should be recommended that she see neurology as an outpatient. Recommendations Pulmonary: Hypoxic and hypercapnic respiratory failure - due to overdose resulting in hypoventilation - s/p intubation and self extubation - no acute concerns currently Atelectasis - recommend VibraPEP as an outpatient if she is amenable Aspiration Pneumonia - recommend Levaquin 750 daily (anaphylaxis penicillin allergy) for 7 days Cardiac: Cardiac Arrest - likely due to hypoventilation from overdose Prolonged QTc - outpatient follow up for an EKG due to methadone and Levaquin Renal: ROSALIND, resolved - likely prerenal - monitor I/O's Anion Gap Metabolic Acidosis, resolved - likely due to elevated lactate - serum osmalality pending I&O: Intake & Output 12/14/22 12/15/22 12/16/22 12/17/22 23:59 23:59 23:59 23:59 Intake Total 2650.509 / 2650.509 1242.195 / 1242.195 Output Total 2415 / 2415 1000 / 1000 Balance 235.509 / 235.509 242.195 / 242.195 Weight 65.7 kg 66.3 kg Daily Fluid Goal:: even GI Nutrition: Nutrition - ok for regular diet Elevated LFT's - improving Infectious Disease: Aspiration - as above, started Levaquin - s/p bronchoscopy Hematologic: Leukocytosis, improving Neurologic: Overdose - s/p Narcan 0.4 IV - serum osmalality ordered - patient on methadone and requesting this Possible seizure - Keppra 1g bid - appreciate neurology rec's Endocrine: No acute concerns Lines: Right femoral line - has been D/C'ed Endotracheal tube - self extubated this morning Barraza - has been removed Prophylaxis: on DVT ppx Code Status: Resuscitation Status Full Code Subjective Critical and life-threatening events over the past 24 hours: She became more bradycardic overnight and required some decreases in her propofol. At 630 am she self extubated. She has been stable both vital signs crane and from a respiratory perspective since this. I performed a bronchoscopy yesterday afternoon after a significant mucus plugging event. Milky textured, dean fluid with visible mucus and possibly organic material from aspiration was sent for analysis. This morning she is screaming for her methadone and screaming to leave the hospital. She does have a sore throat. Exam Narrative Exam Narrative: POCUS 12/16/22: All views visualized. Normal EF. No pericardial effusion. No pleural effusions. No abdominal free fluid. No B-lines. Bilateral atelectasis, R>L. Normal sized IVC with collapsibility. Gen: Full exam deferred as patient is very agitated and non cooperative. No audible wheeze or stridor. Has a productive cough. Most Recent VS/Results Last Vital Signs Temp 36.9 C 12/17/22 03:00 Pulse 54 L 12/17/22 05:01 Resp 19 12/17/22 05:01 BP 101/60 12/17/22 05:01 Pulse Ox 100 12/17/22 05:01 Laboratory Results - last 24 hr 12/16/22 12/16/22 12/16/22 08:10 10:06 10:06 WBC RBC Hgb Hct MCV MCH MCHC RDW Plt Count MPV Immature Gran % Neutrophils % Lymphocytes % Monocytes % Eosinophils % Basophils % Nucleated RBC % Absolute Neutrophils Absolute Lymphocytes Absolute Monocytes Absolute Eosinophils Absolute Basophils ABG Sample Site Right Radial ABG pH 7.26 L ABG pCO2 52 H ABG pO2 55 L ABG HCO3 24 ABG Total CO2 22 L ABG O2 Saturation 84 L ABG Base Excess -4 L VBG pH 7.33 VBG pCO2 43 VBG pO2 86 VBG HCO3 23 VBG Total CO2 21 L VBG O2 Saturation 96 VBG Base Excess -3 L VBG Lactate Oxygen Liter Flow VENT FiO2 100 Sodium Potassium Chloride Carbon Dioxide Anion Gap BUN Creatinine Est GFR (CKD-EPI 2020) Glucose Calcium Magnesium Total Bilirubin Conjugated Bilirubin AST ALT Alkaline Phosphatase Troponin I 79 H* Total Protein Albumin 12/16/22 12/16/22 12/16/22 12:49 12:49 12:49 WBC RBC Hgb Hct MCV MCH MCHC RDW Plt Count MPV Immature Gran % Neutrophils % Lymphocytes % Monocytes % Eosinophils % Basophils % Nucleated RBC % Absolute Neutrophils Absolute Lymphocytes Absolute Monocytes Absolute Eosinophils Absolute Basophils ABG Sample Site ABG pH ABG pCO2 ABG pO2 ABG HCO3 ABG Total CO2 ABG O2 Saturation ABG Base Excess VBG pH VBG pCO2 VBG pO2 VBG HCO3 VBG Total CO2 VBG O2 Saturation VBG Base Excess VBG Lactate 0.8 Oxygen Liter Flow FiO2 Sodium 140 Potassium 3.5 Chloride 105 Carbon Dioxide 26.3 Anion Gap 8.7 BUN 10 Creatinine 0.9 Est GFR (CKD-EPI 2020) 87.11 Glucose 80 Calcium 7.9 L Magnesium Total Bilirubin 0.2 Cancelled Conjugated Bilirubin 0.1 Cancelled AST 174 H Cancelled ALT 116 H Cancelled Alkaline Phosphatase 134 H Cancelled Troponin I 73 H* Total Protein 6.4 Cancelled Albumin 3.0 L Cancelled 12/16/22 12/16/22 12/17/22 12:49 18:15 05:45 WBC RBC Hgb Hct MCV MCH MCHC RDW Plt Count MPV Immature Gran % Neutrophils % Lymphocytes % Monocytes % Eosinophils % Basophils % Nucleated RBC % Absolute Neutrophils Absolute Lymphocytes Absolute Monocytes Absolute Eosinophils Absolute Basophils ABG Sample Site ABG pH ABG pCO2 ABG pO2 ABG HCO3 ABG Total CO2 ABG O2 Saturation ABG Base Excess VBG pH 7.34 VBG pCO2 47 VBG pO2 70 VBG HCO3 25 VBG Total CO2 23 L VBG O2 Saturation 94 VBG Base Excess -1 VBG Lactate Oxygen Liter Flow FiO2 Sodium 143 Potassium 4.0 Chloride 107 Carbon Dioxide 23.9 Anion Gap 12.1 H BUN 10 Creatinine 0.9 Est GFR (CKD-EPI 2020) 87.11 Glucose 122 H Calcium 8.4 L Magnesium Total Bilirubin 0.2 Conjugated Bilirubin AST 97 H ALT 87 H Alkaline Phosphatase 105 Troponin I < 50 Total Protein 5.8 L Albumin 2.6 L 12/17/22 12/17/22 05:45 05:45 WBC 12.82 H RBC 4.26 Hgb 10.1 L Hct 32.0 L MCV 75 L D MCH 23.7 L MCHC 31.6 L RDW 19.5 H Plt Count 281 MPV 9.3 Immature Gran % 0.4 Neutrophils % 90.4 Lymphocytes % 7.3 Monocytes % 1.7 Eosinophils % 0.0 Basophils % 0.2 Nucleated RBC % 0.0 Absolute Neutrophils 11.59 H Absolute Lymphocytes 0.94 L Absolute Monocytes 0.22 Absolute Eosinophils 0.00 Absolute Basophils 0.03 ABG Sample Site ABG pH ABG pCO2 ABG pO2 ABG HCO3 ABG Total CO2 ABG O2 Saturation ABG Base Excess VBG pH VBG pCO2 VBG pO2 VBG HCO3 VBG Total CO2 VBG O2 Saturation VBG Base Excess VBG Lactate Oxygen Liter Flow FiO2 Sodium Potassium Chloride Carbon Dioxide Anion Gap BUN Creatinine Est GFR (CKD-EPI 2020) Glucose Calcium Magnesium 2.2 Total Bilirubin Conjugated Bilirubin AST ALT Alkaline Phosphatase Troponin I Total Protein Albumin Review of Systems Unobtainable due to mental status Time spent with patient Time spent in Critical Care: 40 Time spent in Critical care included: Chart review, Documenting critically ill care, Time at immediate bedside and Discussing critically ill care with other medical staff Multi-Disciplinary Checklist Lines/Tubes CENTRAL LINE: yes, Central Line Day#: 1 Note: discontinued this morning ARTERIAL LINE: no BARRAZA: yes, Barraza Day#: 1 Note: discontinued this morning ENDOTRACHEAL TUBE: yes, Endotracheal Tube Day#: 1 Sedation: yes, Sedation Vacation: yes Head of Bed@30 degrees: yes Spontaneous Breathing Trial: no, Reason/Intervention: patient self extubated at 630 am ICU Maintenance GLUCOSE 140-180mg/dL: yes NUTRITION AT GOAL: no, Reason/Intervention: ok for regular diet now PRESSURE ULCER: no RESTRAINTS: no ANTIBIOTICS(if yes, consider Stewardship): Yes Social Issues FAMILY UPDATED: yes PT/OT: no, GOALS/DISPOSITION/TITLE AGENT: yes CODE STATUS: Full Prophylaxis DVT PROPHYLAXIS: yes GI PROPHYLAXIS: no
--- NOTE | 2022-12-17 07:52 | PGE_ITS ---
Date of Service Date of service: 12/17/22 Time of Service: 07:52 Assessment and Plan Assessment and plan (1) Cardiac arrest: Status: Acute Assessment and plan: out of hospital cardiac arrest following witnessed tonic clonic seizure in patient w/ known opioid use disorder w/ recent cocaine use. Likely she had seizure then had hypoxic event causing cardiac arrest. Unfortunately we do not have EMS written report nor any ECG taken in the field. I doubt that this was an asystolic arrest but more likely cardiac arrhythmia caused by her cocaine use or by her hypoxic event. Patient had ROSC while out of hospital therfore making asystole the unlikely arrhythmia. Nevertheless, she did not get epinephrine and has not required vasopressors. Patient has remained hemodynamically stable overnight although has exhibited sinus bradycardia into the 30's. 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 Her bradycardia probably was secondary to combo of precedex and diprivan. She is off both now. Nevertheless she is on methadone and levaquin (for aspiration pneumonia) and therefore I will check her EKG for her QTC. Professional time spent interviewing and examining patient, discussion of goals of care with hospital team (care management, nursing and consulting professionals) was 60 minutes. (2) Respiratory failure with hypoxia and hypercapnia: Status: Acute Assessment and plan: Patient has self extubated this morning. Will continue Levaquin 750 mg daily x 6 more days. Also will change from dexamethasone to prednisone 40 mg daily x 5 days as she had a lot of mucous secretion yesterday along w/ airway inflammation and in setting of self extubation, steroids may help w/ upper airway edema. (3) Aspiration into airway: Status: Acute Assessment and plan: as above (4) Atelectasis: Status: Acute Assessment and plan: encourage pulmonary toiletry, IS and acapella. Her yelling actually is a good thing for opening up her airways (5) High anion gap metabolic acidosis: Status: Resolved Assessment and plan: likely d/t seizure. lactate level now normal and AG resolved. (6) Polysubstance abuse: Status: Acute Assessment and plan: will ask mental health to evaluate her regarding any suicidality. If they find she is not a high risk for suicide then I will discharge her w/ follow up w/ drug rehab counselor/control and recovery special tactics and her unclaimed property officer and personal care attendant at her transitional housing. (7) ROSALIND (acute kidney injury): Status: Resolved Assessment and plan: resolved overnight w/ iv fluid hydration. iv fluids stopped. (8) Elevated LFTs: Status: Acute Assessment and plan: improving. likely shock liver from cardiopulmonary arrest (9) Prolonged QT interval: Status: Acute Assessment and plan: monitor w/ EKG particularly while on levaquin and methadone combination. Levaquin was picked d/t alleged anaphylaxis reaction to PCN (10) Opioid abuse with intoxication: Status: Acute Assessment and plan: her methadone dose was verified as 155 mg/daily, pharmacy confirmed this w/ [facility], although patient states she takes 165 mg. (11) Hepatitis C: Status: Chronic Assessment and plan: monitor LFT Subjective Subjective Interval history since last seen: Patient self extubated this morning. She was scheduled for SBT this morning anyway. She has become belligerent, yelling profanities at staff, pulling of ECG leads. So far she has left her iv in place. Patient denies attempting to kill herself but admits to using cocaine yesterday. She seemed unaware that she had a seizure and had nearly from cardiac arrest. She wants to leave the hospital. I spoke w/ her brother, Shar Lima, who is stationed in [place], he indicated that he spoke w/ her a short while ago (nursing did indeed put his call through to her) and he says that she told him that she wants to and has nothing to liver for. He also indicated that the man she claims is her is not her but her boyfriend and fellow cocaine user. I told him that I would request a mental health consult to assess her suicidal intentions and capacity to make her own decisions. Patient admits she has a seizure disorder and reportedly is on lamictal and topamax but does not know her doses. She says that the [facility] had [facility] when she was [facility] in July. She has not seen a provider since she left [facility]. Exam Narrative Exam Narrative: Patient is yelling, thrashes about the bed. Voice is not hoarse, no stridor Lungs: scattered expiratory wheezes, some rales at bases Heart: bradycardic (monitor had shown her dropping into the 30's but no AV block) Abdomen: nondistended Objective Last Vital Signs Temp 36.9 C 12/17/22 03:00 Pulse 54 L 12/17/22 05:01 Resp 19 12/17/22 05:01 BP 101/60 12/17/22 05:01 Pulse Ox 100 12/17/22 05:01 Laboratory Results - last 24 hr 12/16/22 12/16/22 12/16/22 08:10 10:06 10:06 WBC RBC Hgb Hct MCV MCH MCHC RDW Plt Count MPV Immature Gran % Neutrophils % Lymphocytes % Monocytes % Eosinophils % Basophils % Nucleated RBC % Absolute Neutrophils Absolute Lymphocytes Absolute Monocytes Absolute Eosinophils Absolute Basophils ABG Sample Site Right Radial ABG pH 7.26 L ABG pCO2 52 H ABG pO2 55 L ABG HCO3 24 ABG Total CO2 22 L ABG O2 Saturation 84 L ABG Base Excess -4 L VBG pH 7.33 VBG pCO2 43 VBG pO2 86 VBG HCO3 23 VBG Total CO2 21 L VBG O2 Saturation 96 VBG Base Excess -3 L VBG Lactate Oxygen Liter Flow VENT FiO2 100 Sodium Potassium Chloride Carbon Dioxide Anion Gap BUN Creatinine Est GFR (CKD-EPI 2020) Glucose Calcium Magnesium Total Bilirubin Conjugated Bilirubin AST ALT Alkaline Phosphatase Troponin I 79 H* Total Protein Albumin 12/16/22 12/16/22 12/16/22 12:49 12:49 12:49 WBC RBC Hgb Hct MCV MCH MCHC RDW Plt Count MPV Immature Gran % Neutrophils % Lymphocytes % Monocytes % Eosinophils % Basophils % Nucleated RBC % Absolute Neutrophils Absolute Lymphocytes Absolute Monocytes Absolute Eosinophils Absolute Basophils ABG Sample Site ABG pH ABG pCO2 ABG pO2 ABG HCO3 ABG Total CO2 ABG O2 Saturation ABG Base Excess VBG pH VBG pCO2 VBG pO2 VBG HCO3 VBG Total CO2 VBG O2 Saturation VBG Base Excess VBG Lactate 0.8 Oxygen Liter Flow FiO2 Sodium 140 Potassium 3.5 Chloride 105 Carbon Dioxide 26.3 Anion Gap 8.7 BUN 10 Creatinine 0.9 Est GFR (CKD-EPI 2020) 87.11 Glucose 80 Calcium 7.9 L Magnesium Total Bilirubin 0.2 Cancelled Conjugated Bilirubin 0.1 Cancelled AST 174 H Cancelled ALT 116 H Cancelled Alkaline Phosphatase 134 H Cancelled Troponin I 73 H* Total Protein 6.4 Cancelled Albumin 3.0 L Cancelled 12/16/22 12/16/22 12/17/22 12:49 18:15 05:45 WBC RBC Hgb Hct MCV MCH MCHC RDW Plt Count MPV Immature Gran % Neutrophils % Lymphocytes % Monocytes % Eosinophils % Basophils % Nucleated RBC % Absolute Neutrophils Absolute Lymphocytes Absolute Monocytes Absolute Eosinophils Absolute Basophils ABG Sample Site ABG pH ABG pCO2 ABG pO2 ABG HCO3 ABG Total CO2 ABG O2 Saturation ABG Base Excess VBG pH 7.34 VBG pCO2 47 VBG pO2 70 VBG HCO3 25 VBG Total CO2 23 L VBG O2 Saturation 94 VBG Base Excess -1 VBG Lactate Oxygen Liter Flow FiO2 Sodium 143 Potassium 4.0 Chloride 107 Carbon Dioxide 23.9 Anion Gap 12.1 H BUN 10 Creatinine 0.9 Est GFR (CKD-EPI 2020) 87.11 Glucose 122 H Calcium 8.4 L Magnesium Total Bilirubin 0.2 Conjugated Bilirubin AST 97 H ALT 87 H Alkaline Phosphatase 105 Troponin I < 50 Total Protein 5.8 L Albumin 2.6 L 12/17/22 12/17/22 05:45 05:45 WBC 12.82 H RBC 4.26 Hgb 10.1 L Hct 32.0 L MCV 75 L D MCH 23.7 L MCHC 31.6 L RDW 19.5 H Plt Count 281 MPV 9.3 Immature Gran % 0.4 Neutrophils % 90.4 Lymphocytes % 7.3 Monocytes % 1.7 Eosinophils % 0.0 Basophils % 0.2 Nucleated RBC % 0.0 Absolute Neutrophils 11.59 H Absolute Lymphocytes 0.94 L Absolute Monocytes 0.22 Absolute Eosinophils 0.00 Absolute Basophils 0.03 ABG Sample Site ABG pH ABG pCO2 ABG pO2 ABG HCO3 ABG Total CO2 ABG O2 Saturation ABG Base Excess VBG pH VBG pCO2 VBG pO2 VBG HCO3 VBG Total CO2 VBG O2 Saturation VBG Base Excess VBG Lactate Oxygen Liter Flow FiO2 Sodium Potassium Chloride Carbon Dioxide Anion Gap BUN Creatinine Est GFR (CKD-EPI 2020) Glucose Calcium Magnesium 2.2 Total Bilirubin Conjugated Bilirubin AST ALT Alkaline Phosphatase Troponin I Total Protein Albumin Time Spent with Patient Time Spent with Patient: >50 minutes Time was spent: preparing to see the patient(eg.review tests), obtaining and/or reviewing separately otained hiistory (obtained from patient's brother), ordering medications,tests, procedures, referring, communicating with other health healthcare consultant (discussion w/ Dr. Demarco and w/ Dr. Madrid), indepentently interpreting results, counseling the patient and care coordination
[2022-12-17] MEDS: predniSONE 20 MG TAB 40 MG PO (08:13)
[2022-12-17] MEDS: levETIRAcetam 500 MG TAB 1000 MG PO (08:13)
[2022-12-17] MEDS: levoFLOXacin 500 MG, levoFLOXacin 250 MG 750 MG PO (09:06)
[2022-12-17] MEDS: Lidocaine 2% Viscous 15 ML CUP PO (09:16)
--- NOTE | 2022-12-17 09:43 | INITIAL_ITS ---
- If Service Date Differs Date of service: 12/17/22 Time of Service: 09:43 Care Management Initial Assess REASON FOR HOSPITALIZATION:: Acute hypoxemic respiratory failure, aspiration, drug overdose PAST MEDICAL HISTORY/PAST SURGICAL HISTORY:: All Active Problems. Prolonged QT interval (Acute). Elevated LFTs (Acute). Lactic acidosis (Acute). ROSALIND (acute kidney injury) (Acute). High anion gap metabolic acidosis (Acute). Atelectasis (Acute). Aspiration into airway (Acute). Leukocytosis (Acute). Respiratory failure with hypoxia and hypercapnia (Acute). Cardiac arrest (Acute). Acute respiratory acidosis (Acute). Polysubstance abuse (Acute). Hepatitis C (Chronic). Opioid abuse with intoxication (Acute). Medical History. Bipolar 1 disorder. Surgical History. S/P PREVIOUS FUNCTIONAL STATUS/SOCIAL/FAMILY SUPPORTS:: Per report, Vivien was living in a half way house prior to this admission. She is currently on parole, her P/O is Michael Mayen. Vivien has support from her brother, Shar Lima, as well as her Uncle Torres and aunt Chanda. Vivien is asking to leave the hospital, and her interactions with CM are minimal. She is independent with ADL's at baseline. CURRENT FUNCTIONAL STATUS:: Vivien was sitting up in bed eating ice cream when CM met with her. She expressed frustration around being in the hospital, and stated that she just wants to leave and have a cigarette. CM asked her RN if she could have any nicotine replacement, and she was provided a nicatrol inhaler. KARI coordinated a mental health screening by [facility] clinician, Charlie, who cleared her, stating that she is not reporting any SI/HI, and that this was an accidental drug overdose. CM provided clothes, as her clothes were all cut off in the ED. Later, her s/o arrived and had brought her clothes and shoes. CM provided a last dose letter for BAART. CM will continue to follow. ADVANCE DIRECTIVES:: None on file. Pt declined forms. Has patient been provided with info about the portal/API?: Yes Did the patient sign up for the portal?: No CODE STATUS:: Full Code INSURANCE COVERAGE / FINANCIAL ISSUES:: [employer] CURRENT HOME/COMMUNITY SERVICES/EQUIPMENT:: Vivien has a P/Michael Cabral, currently. PRIMARY CARE PHYSICIAN:: Vivien is not established at a PCP office. CM contacted [facility] for a hospital follow up appointment. POTENTIAL DISCHARGE NEEDS:: PCP follow up, community resources PATIENT/FAMILY EDUCATION NEEDS:: Review discharge instructions and limitations, discussion of self care needs including ask me three. ANTICIPATED BARRIERS TO DISCHARGE:: None identified. Pt stating that she will leave AMA if not discharged. TRANSPORTATION:: Via private vehicle by family vs RCT bus PLAN:: Anticipate Vivien will return to the community with no new services. She will transport via family. She will follow up with Irish Cooley MD at [facility] on 12/22/22 at 2:15pm, and her discharge plan of care. CM will continue to follow.
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
[2022-12-17] MEDS: LORazepam 1 MG TAB PO (10:58)
--- NOTE | 2022-12-17 13:42 | W.PM.DS.N ---
Date of service: 12/17/22 Time of Service: 13:42 DS: Diagnosis Discharge Diagnosis (1) Cardiac arrest: Status: Acute (2) Respiratory failure with hypoxia and hypercapnia: Status: Acute (3) Aspiration into airway: Status: Acute (4) Atelectasis: Status: Acute (5) High anion gap metabolic acidosis: Status: Resolved (6) Polysubstance abuse: Status: Acute (7) ROSALIND (acute kidney injury): Status: Resolved (8) Elevated LFTs: Status: Acute (9) Prolonged QT interval: Status: Acute (10) Opioid abuse with intoxication: Status: Acute (11) Hepatitis C: Status: Chronic (12) Leukocytosis: Status: Acute (13) Lactic acidosis: Status: Acute (14) Self extubation: Status: Acute Discharge Plan Disposition Patient Disposition: Home Condition: Improving Discharge Details Reason For Visit: Acute Hypoxemic Resp Failure,Aspiration,Drug Overd Admit Date/Time: 12/16/22 09:30 Admit Provider: Amador Velasquez Attending Provider: Amador Velasquez Primary Care Provider: None,None Hospital Course Hospital Course: Patient was admitted to the intensive care unit after presenting to the emergency department via EMS after having witnessed seizure and subsequent cardiopulmonary arrest. Patient received 6+ minutes, CPR bystander and EMS. Supraglottic airway was placed by EMS and on arrival to the emergency department patient was obtunded and unable to protect her airway and was subsequently intubated and placed on mechanical ventilation. Imaging of her chest showed bibasilar atelectasis. Pulmonary consultation was obtained with Dr. Madrid and patient subsequently underwent bedside fiberoptic bronchoscopy to clear secretions from her airway particularly both lower lobes. Patient was treated with IV Levaquin and steroids for aspiration pneumonia. Patient was alert on Keppra for seizures. Ordered she was loaded with 4 g of Keppra and then placed on Keppra 1000 mg every 12 hours. Consultation was subsequently obtained by neurology. EEG was ordered and not completed on the patient as the geological technical officer was not available. The patient was sedated w/ propofol infusion and Precedex infusion. On the morning of 12/17/22 she was to undergo sedation holiday to assess her for readiness for spontanous breathing trial. Once her sedation was weaned down, she self extubated. She did well post extubation w/ no hoarseness nor any stridor. She was monitored throughout the morning and into the early afternoon. A mental health consult was requested w/ MARTY to assess her mental state as to her risk for suicidal behavior. It was determined that she was using cocaine recreationally and was not intending to overdose or to try to kill herself. The patient insisted on leaving the hospital and refused to remain hospitalized any longer and indicated that if she were to continue to be held it would be against her will. As she was hemodynamically stable and oxygen saturation was fine on room air and as she had no further seizures nor arrhythmias, she was deemed reasonably safe for discharge. However, she was strongly cautioned against further opioid or cocaine abuse and advised to finish a 7 day course of Levaquin 750 mg daily and prednisone 40 mg daily x 5 days. Serial EKG were monitored with initiation of her Levaquin and her QTC was acceptable at 466 msec on the day of her discharge. She is advised to follow up w/ a local neurologist to assist management of her seizure disorder. She was not discharged on Keppra but was to maintain her current AED's, Topamax and Lamictal Home Meds and New Rx's Prescriptions: New levofloxacin 750 mg tablet 750 mg PO DAILY 7 Days Qty: 7 0RF prednisone 20 mg tablet 40 mg PO DAILY 5 Days Qty: 10 0RF albuterol sulfate 90 mcg/actuation HFA aerosol inhaler 2 inh inhalation QID PRNQty: 8.5 0RF Continued methadone [Methadone Intensol] 10 mg/mL Concentrate 155 mg PO DAILY Rx Instructions: verified w/[facility] 12/17/22-155mg daily sennosides-docusate sodium 8.6-50 mg Tablet 1 tab PO HS PRN PRN Rx Instructions: [facility] 06/2022 hydroxyzine pamoate 50 mg Capsule 50 mg PO HS Rx Instructions: [facility] 06/2022 pantoprazole 40 mg Tablet,Delayed Release (Dr/Ec) 40 mg PO DAILY Rx Instructions: [facility] 06/2022 lidocaine 5 % Adhesive Patch,Medicated 1 patch TOPICAL DAILY Rx Instructions: leave on most painful area for up to 12 hrs ([facility] 06/2022) bupropion HCl 75 mg Tablet 150 mg PO DAILY Rx Instructions: [facility] 06/2022 topiramate 100 mg Tablet 100 mg PO HS Rx Instructions: [facility] 06/2022 lamotrigine 100 mg Tablet 100 mg PO BID Rx Instructions: [facility] 06/2022 naproxen 500 mg Tablet 500 mg PO BID Rx Instructions: [facility] 06/2022 buspirone 15 mg Tablet 15 mg PO BID Rx Instructions: [facility] 06/2022 hydroxyzine pamoate 25 mg Capsule 25 mg PO DAILY Rx Instructions: [facility] 06/2022 Discharge Instructions Instructions: Cocaine Abuse (DC), Aspiration Pneumonia (DC), Opioid Use Disorder (DC) Additional Instructions: You were intubated, placed on mechanical ventilator and admitted to the ICU due to your experiencing a seizure and subsequent cardiopulmonary arrest (stopping of your breathing and stoppage of your heart). This was an event that could have led to your . This event was a direct result of your abusing cocaine and narcotics. You are strongly advised to follow up with your recovery rn and your counselors at [facility] and to avoid any further use of illicit i.e. illegal narcotics or cocaine. As for your seizure, you were treated with Keppra while you were hospitalized and had no further seizures since admission. At home you have been maintained on lamotrigine and topamax. You should follow up w/ a neurologist who should direct the type of anti-epileptic medications and dosing. We have given you the name and number for Dr. Elenita Vieyra, a neurologist affiliated / [facility]. You should contact her office on Tuesday for a follow up appointment. You have also been given a primary care provider, Irish Cooley to follow up regarging your pneumonia. Please complete a weeks worth of Levaquin for your pneumonia. You should take a 5 day course of prednisone to help w/ lung inflammation caused by your aspiration pneumonia. You have also been given an Rx for albuterol inhaler that you may use as needed for acute wheezing/coughing or shortness of breath. Referrals: Irish Cooley [ CONSULTING PHYSICIAN] - 12/22/22 2:15 pm Elenita Vieyra MD [ [facility] STAFF PHYSICIAN] - (call the office on Tuesday for follow up appointment) Activity:: Activity as Tolerated Equipment/Supplies:: No Equipment Needed Diet:: Normal Diet Discharge Orders Discharge Orders: Discharge Order (Routine); Ordered 12/17/22 Ordered By: Amador Velasquez DS: Summary Time Spent with Patient providing and/or coordinating discharge services: Greater than 30 minutes Status at Discharge Functional status at discharge: independent ambulation Overall status at discharge: patient is back to baseline Mental Status: mental status grossly normal Speech and Movement: agitated and speech clear Mood: labile mood Affect: animated Exam Narrative Exam Narrative: Patient is yelling,and verbally abusive to staff. Voice is not hoarse, no stridor Lungs: scattered end expiratory wheezes, some rales at bases Heart: bradycardic (monitor had shown her dropping into the 30's but no AV block) Abdomen: nondistended Psych Mental Status: mental status grossly normal Speech and Movement: agitated and speech clear Mood: labile mood Affect: animated DS: Data Vitals/I&O Vitals and I&O: Vital Signs Temperature 37.1 C 12/17/22 09:50 Temperature Source Tympanic 12/17/22 09:50 Pulse 73 12/17/22 09:55 Pulse 65 12/17/22 07:30 Respiratory Rate 22 12/17/22 09:50 Respiratory Effort Normal 12/17/22 09:50 Respiratory Depth Normal 12/17/22 09:50 Respiratory Pattern Normal 12/17/22 09:50 Blood Pressure 112/73 12/17/22 09:55 Blood Pressure Mean 81 12/17/22 09:55 Blood Pressure Position Supine 12/17/22 09:50 Pulse Oximetry 98 12/17/22 10:30 Respiratory End-tidal CO2 41 12/17/22 06:01 Oxygen Delivery Method Nasal Cannula 12/17/22 09:50 Oxygen Flow Rate 0 12/17/22 09:50 Fraction of Inspired Oxygen (FIO2) 60 12/17/22 04:00 End Tidal Co2 31 12/16/22 04:58 Pain Level 0 12/17/22 03:00 Intake & Output 12/16/22 12/17/22 12/17/22 23:59 11:59 23:59 Intake Total 2410.509 / 2650.509 1590.982 / 1590.982 Output Total 1405 / 2415 1200 / 1200 Balance 1005.509 / 235.509 390.982 / 390.982 Weight 66.3 kg Intake: IV 2410.509 / 2650.509 1350.982 / 1350.982 Oral 240 / 240 Output: Gastric Drainage 525 / 535 225 / 225 Oral 525 / 535 225 / 225 Urine 880 / 1880 975 / 975 Other: Urine Color Yellow Yellow Urine Appearance Cloudy Clear Sediment Comment Smith's cath patent and draining. pt has not yet voided s/p smith d/c Data Completed and Pending Labs on day of discharge: Labs from last 24 hours 12/17/22 12/17/22 12/17/22 05:45 05:45 05:45 WBC 12.82 H RBC 4.26 Hgb 10.1 L Hct 32.0 L MCV 75 L D MCH 23.7 L MCHC 31.6 L RDW 19.5 H Plt Count 281 MPV 9.3 Immature Gran % 0.4 Neutrophils % 90.4 Lymphocytes % 7.3 Monocytes % 1.7 Eosinophils % 0.0 Basophils % 0.2 Nucleated RBC % 0.0 Absolute Neutrophils 11.59 H Absolute Lymphocytes 0.94 L Absolute Monocytes 0.22 Absolute Eosinophils 0.00 Absolute Basophils 0.03 Sodium 143 Potassium 4.0 Chloride 107 Carbon Dioxide 23.9 Anion Gap 12.1 H BUN 10 Creatinine 0.9 Est GFR (CKD-EPI 2020) 87.11 Glucose 122 H Serum Osmolality Calcium 8.4 L Magnesium 2.2 Total Bilirubin 0.2 AST 97 H ALT 87 H Alkaline Phosphatase 105 Troponin I Total Protein 5.8 L Albumin 2.6 L BAL Neutrophils BAL Lymphocytes BAL Eosinophils BAL Monocyte/Macrophage Gram Stain Adenovirus DNA Human Metapneumovir RNA Parainfluenza 1 (PCR) Parainfluenza 2 (PCR) Parainfluenza 3 (PCR) Parainfluenza 4 (PCR) Resp Viral Spec Desc Rhinovirus (PCR) Ur Strep pneumoniae Ag AFB Source AFB Culture Final Res Aerobic Culture Fungal Specimen Source Fungal Culture Status Fungal Culture Final Fungal Smear Result M. Tuberculosis PCR AFB Smear (Ref Lab) Ref Test Specimen Type Ref Report Verification 12/16/22 12/16/22 12/16/22 18:15 15:30 15:30 WBC RBC Hgb Hct MCV MCH MCHC RDW Plt Count MPV Immature Gran % Neutrophils % Lymphocytes % Monocytes % Eosinophils % Basophils % Nucleated RBC % Absolute Neutrophils Absolute Lymphocytes Absolute Monocytes Absolute Eosinophils Absolute Basophils Sodium Potassium Chloride Carbon Dioxide Anion Gap BUN Creatinine Est GFR (CKD-EPI 2020) Glucose Serum Osmolality Calcium Magnesium Total Bilirubin AST ALT Alkaline Phosphatase Troponin I < 50 Total Protein Albumin BAL Neutrophils Pending BAL Lymphocytes Pending BAL Eosinophils Pending BAL Monocyte/Macrophage Pending Gram Stain Pending Adenovirus DNA Pending Human Metapneumovir RNA Pending Parainfluenza 1 (PCR) Pending Parainfluenza 2 (PCR) Pending Parainfluenza 3 (PCR) Pending Parainfluenza 4 (PCR) Pending Resp Viral Spec Desc Pending Rhinovirus (PCR) Pending Ur Strep pneumoniae Ag Pending AFB Source AFB Culture Final Res Aerobic Culture Pending Fungal Specimen Source Fungal Culture Status Fungal Culture Final Fungal Smear Result M. Tuberculosis PCR AFB Smear (Ref Lab) Ref Test Specimen Type Pending Ref Report Verification Pending 12/16/22 12/16/22 15:30 04:35 WBC RBC Hgb Hct MCV MCH MCHC RDW Plt Count MPV Immature Gran % Neutrophils % Lymphocytes % Monocytes % Eosinophils % Basophils % Nucleated RBC % Absolute Neutrophils Absolute Lymphocytes Absolute Monocytes Absolute Eosinophils Absolute Basophils Sodium Potassium Chloride Carbon Dioxide Anion Gap BUN Creatinine Est GFR (CKD-EPI 2020) Glucose Serum Osmolality 292 Calcium Magnesium Total Bilirubin AST ALT Alkaline Phosphatase Troponin I Total Protein Albumin BAL Neutrophils BAL Lymphocytes BAL Eosinophils BAL Monocyte/Macrophage Gram Stain Adenovirus DNA Human Metapneumovir RNA Parainfluenza 1 (PCR) Parainfluenza 2 (PCR) Parainfluenza 3 (PCR) Parainfluenza 4 (PCR) Resp Viral Spec Desc Rhinovirus (PCR) Ur Strep pneumoniae Ag AFB Source Pending AFB Culture Final Res Pending Aerobic Culture Fungal Specimen Source Pending Fungal Culture Status Pending Fungal Culture Final Pending Fungal Smear Result Pending M. Tuberculosis PCR Pending AFB Smear (Ref Lab) Pending Ref Test Specimen Type Ref Report Verification PFSH All Active Problems (Updated 12/17/22 @ 08:10 by Amador Velasquez MD) Self extubation (Acute) Prolonged QT interval (Acute) Elevated LFTs (Acute) Lactic acidosis (Acute) Atelectasis (Acute) Aspiration into airway (Acute) Leukocytosis (Acute) Respiratory failure with hypoxia and hypercapnia (Acute) Cardiac arrest (Acute) Acute respiratory acidosis (Acute) Polysubstance abuse (Acute) Hepatitis C (Chronic) Opioid abuse with intoxication (Acute) Medical History Bipolar 1 disorder Surgical History S/P Family History (Updated 12/16/22 @ 12:34 by Amador Velasquez MD) Father Cirrhosis Mother Substance use disorder Brother No problems noted. Sister No problems noted. Social History (Updated 12/16/22 @ 12:31 by Amador Velasquez MD) Smoking/Tobacco Use Status: Current every day Smoking risk assessment performed?: Yes Alcohol Intake: current Alcohol Intake frequency: 3 or more drinks per day Alcohol type: beer Drug use: Daily Household members: other Housing: other Details: transitional housing Number of Children: 1 Do you feel safe in your relationship?: Yes Additional Social history: Unable to obtain. Unresponsive on arrival. History History 2 Para Hx # Term Pregnancies 1 Multiple births Hx # Pregnancies Ectopic pregnancies AB induced Hx Number of Living Children 1 AB spontaneous 1 Time Spent with Patient Time Spent with Patient: <45 minutes Time was spent: preparing to see the patient(eg.review tests), ordering medications,tests, procedures, indepentently interpreting results, counseling the patient and care coordination
--- NOTE | 2022-12-17 14:09 | CMDISCH_ITS ---
- If Service Date Differs Date of service: 12/17/22 Time of Service: 14:09 LACE Index Scoring Tool - Questions: Length of Stay (in days): 1 Acuity (Admit via E.D.?): Yes E.D. Visits: 1 - Answers: Total Score: 5 Risk of Readmission: Low Risk Care Management Discharge Reason for Hospitalization: Acute hypoxemic respiratory failure, aspiration, drug overdose Discharge Plan: Vivien returned to the community with no new services. KARI coordinated a follow up appointment with [facility] for 12/22/22 at 2:15pm. Neurology would also like to follow up with her, but they were not available at the time of her disharge. KARI verified Vivien's phone number ([phone]), and provided it to [facility]. KARI provided Vivien with a last dose letter for [facility]. Vivien was very happy to be discharged. Her s/o drove her home via private vehicle. Patient/Family Education Needs: Review discharge instructions and limitations, discussion of self care needs including ask me three.
[2022-12-18 10:39] LABS: Adenovirus DNA Result Invalid (Negative); Metapneumovirus RNA Result Invalid (Negative); Parainfluenza Type2 RNA Result Invalid (Negative); Parainfluenza Type3 RNA Result Invalid (Negative); Parainfluenza Type4 RNA Result Invalid (Negative); Rhinovirus RNA Result Invalid (Negative)
[2022-12-19 15:23] LABS: Streptococcus Pneumoniae Ag, U Negative (Negative)
[2022-12-20 16:21] LABS: Lymphocytes Fluid Relative 3 %; Mono/Macrophage Fluid Relative 7 %; Neutrophils Fluid Relative 90 %
[2022-12-21 11:16] LABS: Parainfluenza Type1 RNA Result Invalid (Negative)
[2023-01-14 08:27] LABS: Fungus Smear No Fungi Seen
== END 2022-12-17 13:50 | disposition home or self-care (01) | DRG 917 ==
LOC: ER 10:09 → ICU 10:46
PROVIDERS: Student in an Organized Health Care Education/Training Program; Admitting Provider Internal Medicine; Emergency Provider Student in an Organized Health Care Education/Training Program; Visit Provider Internal Medicine
DX: I46.8 Cardiac arrest due to other underlying condition (principal); T40.5X1A Poisoning by cocaine, accidental (unintentional), initial encounter; J69.0 Pneumonitis due to inhalation of food and vomit; J96.01 Acute respiratory failure with hypoxia; J96.02 Acute respiratory failure with hypercapnia; J98.11 Atelectasis; N17.9 Acute kidney failure, unspecified; E87.21 Acute metabolic acidosis; T17.590A Other foreign object in bronchus causing asphyxiation, initial encounter; T40.411A Poisoning by fentanyl or fentanyl analogs, accidental (unintentional), initial encounter; F31.9 Bipolar disorder, unspecified; G40.909 Epilepsy, unspecified, not intractable, without status epilepticus; F11.129 Opioid abuse with intoxication, unspecified; F17.210 Nicotine dependence, cigarettes, uncomplicated; F19.10 Other psychoactive substance abuse, uncomplicated; B18.2 Chronic viral hepatitis C; D72.829 Elevated white blood cell count, unspecified; R79.89 Other specified abnormal findings of blood chemistry; R94.31 Abnormal electrocardiogram [ECG] [EKG]
CPT/HCPCS: 31645; 36415; 36416; 36591; 51702; 71275; 74177; 80048; 80053; 80076; 80162; 80307; 81025; 82805; 82962; 87070; 87102; 87107; 87116; 87205; 87206; 87632; 87635; 93005; 96365; 96368; 96375; 99285; J1650; 36600; 70450; 71045; 72125; 80320; 80329; 83605; 83735; 83930; 84484; 85025; 87899; 93010; 94002; 94003; 94640; 99239; 99291; J0131; J1100; J1953; J1956; J2060; J2704; J3010; J3480; J3490; J7512; J7613

== ENCOUNTER 2023-03-15 13:51 | Outpatient (REF) | payer MEDICAID, SELFPAY ==
--- NOTE | 2023-03-15 13:30 | PAPFT_PTH ---
PATIENT: Vivien Mohan LOC: N U#:[id number] AGE/SX: 32/F ROOM: RE03/15/[address]: Minerva Concepcion MD : 1990 BED: DIS: 03/15/2023 SPEC #: [id number] RECD: 03/15/23 17:42 STATUS: NARDA RECl #: [id number] RASHID: 03/15/23 13:[address]: Minerva Concepcion DEPT: [facility] Cytology RECD BY: Becca Horner Tissues: 1 - CX/ENDOCX FOR PAP SMEARS Procedures: PAP THIN PREP/UVM Screening Comments: [id number] (UNSATISFACTORY FOR EVALUATION)
[2023-03-17 12:25] LABS: Chlamydia Result Negative (Negative); GC Result Negative (Negative)
== END 2023-03-15 13:52 | disposition home or self-care (01) ==
LOC: LBN 13:51
PROVIDERS: Visit Provider Obstetrics & Gynecology
DX: Z11.51 Encounter for screening for human papillomavirus (HPV) (principal)
CPT/HCPCS: 87491; 87591; 88142; 87480; 87510; 87660

== ENCOUNTER 2023-06-15 14:35 | Emergency (ER) | payer MEDICAID, SELFPAY ==
--- NOTE | 2023-06-15 14:54 | NUR.NOTE ---
1453: pt not in waiting room when called to triage Nursing Note:
--- NOTE | 2023-06-15 15:03 | NUR.NOTE ---
attempted to locate pt x4 for triage. access stated on the first inquiry that the pt had walked away. Nursing Note:
== END 2023-06-15 15:03 | disposition left against medical advice (07) ==
LOC: ER 14:51
DX: Z53.21 Procedure and treatment not carried out due to patient leaving prior to being seen by health care provider (principal)

== ENCOUNTER 2023-07-01 09:29 | Emergency (ER) | payer MEDICAID, SELFPAY ==
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
[2023-07-01 09:31] VITALS: BP 97/69; PULSE 61; RESP 15; TEMP 36.3; O2SAT 98
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
[2023-07-01] MEDS: Methadone Liquid 10 MG/ML 30 MG PO (10:04)
[2023-07-01 10:05] LABS: Abs Immature Grans 0.01 10^3/uL (0.0-0.06); Absolute Basophil Count 0.03 10^3/uL (0.0-0.2); Absolute Eosinophil Count 0.23 10^3/uL (0.0-0.7); Absolute Lymphocyte Count 1.77 10^3/uL (1.2-3.4); Absolute Neutrophil Count 4.88 10^3/uL (1.2-6.7); Basophils % 0.4; Eosinophils % 3.1; HCT 41.9 % (36.0-46.0); HGB 13.8 g/dL (11.2-15.7); Immature Grans % 0.1; Lymphocytes % 23.9; MCH 27.1 pg (27.0-33.0); MCHC 32.9 % (32.0-36.0); MCV 82 fL (80-95); MPV 8.5 fL (8.0-11.0); Monocytes % 6.7; Neutrophils % 65.8; Platelet Count 275 10^3/uL (130-400); RBC 5.09 10^6/uL (3.93-5.22); RDW 15.6 % (11.7-14.6); RDW-SD 47.2 fL; WBC 7.42 10^3/uL (4.4-10.8)
[2023-07-01 10:21] LABS: ALT 46 U/L (14-59); AST 31 U/L (15-37); Albumin 3.8 g/dL (3.4-5.0); Alkaline Phosphatase 61 U/L (46-116); Anion Gap 7.6 mmol/L (3-11); BUN 10 mg/dL (7-18); Bilirubin, Total 0.4 mg/dL (0.2-1.0); CO2 27.4 mmol/L (21.0-32.0); CREATININE 0.8 mg/dL (0.55-1.02); Calcium 9.2 mg/dL (8.5-10.1); Chloride 102 mmol/L (98-107); ETHANOL BLOOD < 3.0 mg/dL (<10); Estimated GFR 100.33 (mL/min/1.73m2); Glucose 127 mg/dL (74-106); Sodium 137 mmol/L (136-145); Total Protein 7.9 g/dL (6.4-8.2)
[2023-07-01 10:37] VITALS: PULSE 55; RESP 8
[2023-07-01 10:40] VITALS: PULSE 60; RESP 16
[2023-07-01 10:53] VITALS: BP 124/77; PULSE 85; RESP 30
[2023-07-01 10:54] VITALS: PULSE 70; RESP 25
[2023-07-01] MEDS: Omnipaque 350 MG/ML 500 ML BTL-Imaging package 85 ML IJ (11:40)
[2023-07-01] MEDS: Normal Saline Flush 10 ML SYR IVP (11:41)
[2023-07-01 12:32] LABS: *AMPHETAMINES SCREEN URINE Negative (Negative); *BARBITURATES SCREEN URINE Negative (Negative); *BENZODIAZEPINES SCREEN URINE Negative (Negative); Cannabinoids THC Positive (Negative); Cocaine Screen,Urine Positive (Negative); METHADONE URINE SCREEN Positive (Negative); OPIATES URINE SCREEN Negative (Negative)
[2023-07-01 12:43] LABS: Tricyclic Antidepressants Negative (Negative)
== END 2023-07-01 12:30 | disposition home or self-care (01) ==
LOC: ER 14:49
PROVIDERS: Emergency Provider Student in an Organized Health Care Education/Training Program
DX: Y35.833A Legal intervention involving a conducted energy device, suspect injured, initial encounter; S10.93XA Contusion of unspecified part of neck, initial encounter; Z79.899 Other long term (current) drug therapy; M54.9 Dorsalgia, unspecified; F41.9 Anxiety disorder, unspecified
CPT/HCPCS: 70498; 80053; 80307; 99285; 70450; 72125; 80320; 85025; 99284